=== PATIENT | male | born 1995 | race Caucasian/White ===

== ENCOUNTER 2022-09-02 18:07 | Emergency (ER) | payer BC, SELFPAY ==
[2022-09-02 18:27] VITALS: BP 155/83; PULSE 112; RESP 20; TEMP 37.1; O2SAT 100
--- NOTE | 2022-09-02 19:03 | ED.GENADULT ---
HPI - General Adult General Chief complaint: Upper Respiratory Infection Stated complaint: wants strep test; covid positive Source: patient and family Mode of arrival: ambulatory Limitations: no limitations History of Present Illness HPI narrative: Patient presents for evaluation of sick symptoms. He developed a sore throat yesterday. He took a home COVID test which was negative. He went to work at [employer] today. He had an episode of vomiting and has sore throat worsened. He was sent home from work. He repeated a COVID test which was positive. He denies any fever or diarrhea. He reports chills, and productive cough of yellow sputum. His father recently tested positive for COVID as well. No personal history of COVID. He has not taken any medications for his symptoms. He came in today to ensure that he did not have strep pharyngitis in addition to COVID. Related Data Home Medications Medication Instructions Recorded Confirmed atorvastatin 40 mg tablet mg 09/02/22 dapagliflozin 10 mg tablet mg 09/02/22 (Farxiga) divalproex 250 mg tablet,extended mg PO 09/02/22 release 24 hr insulin glargine 100 unit/mL (3 unit subcut 09/02/22 mL) subcutaneous pen (Lantus Solostar U-100 Insulin) insulin glargine-yfgn 100 unit/mL unit subcut 09/02/22 (3 mL) subcutaneous pen (Semglee (insulin glargine-yfgn) Pen) lisdexamfetamine 70 mg capsule mg 09/02/22 (Vyvanse) metformin 1,000 mg tablet mg 09/02/22 risperidone 0.5 mg tablet mg 09/02/22 risperidone 1 mg tablet mg 09/02/22 semaglutide 1 mg/dose (4 mg/3 mL) mg subcut 09/02/22 subcutaneous pen injector (Ozempic) sertraline 50 mg tablet mg 09/02/22 Allergies Allergy/AdvReac Type Severity Reaction Status Date / Time No Known Allergies Allergy Verified 09/02/22 18:23 Review of Systems Review of Systems: CONSTITUTIONAL:Reports chills. Denies fever or sweats. EYES: Denies visual changes, redness, or discharge. ENT:Reports sore throat. Denies otalgia CARDIOVASCULAR: Denies chest pain, palpitations, or edema. RESPIRATORY: Reports productive cough of yellow sputum. Denies shortness of breath. GASTROINTESTINAL: Reports nausea and vomiting. Denies diarrhea or abdominal pain. GENITOURINARY: Denies dysuria or hematuria. SKIN: Denies rash or itching. MUSCULOSKELETAL: Reports generalized body aches. NEUROLOGIC: Denies headache, numbness, dizziness, or weakness. PSYCHIATRIC: Denies anxiety or depression. PMFSH Past Medical History Medical History Autism Diabetes Hyperlipidemia Surgical History Surgical History No pertinent past surgical history Family History Family History Mother Family history non-contributory Social History Social History Tobacco type: cigars Additional smoking assessment comments: only smokes cigars on special occasions Alcohol intake: never Substance use: never Living arrangements: with family Gender identity (if verbalized by the patient): Male Spiritual care concerns: No Exam Narrative: GENERAL: Well-appearing, well-nourished, and in no acute distress. HEAD: Normocephalic, atraumatic. EYES: PERRLA and EOMI. ENT: Nares clear, no rhinorrhea or epistaxis. Mucous membranes moist. Oropharynx without tonsillar hypertrophy exudate or other lesions. Bilateral TMs pearly marcelo nonbulging NECK: Supple. No adenopathy or masses. No carotid bruits or JVD CHEST: Clear to auscultation. No respiratory distress. No wheezes rales or rhonchi HEART: Regular rate and rhythm. No murmur heard. Normal peripheral pulses. ABDOMEN: Soft, nontender, nondistended, normal active bowel sounds. EXTREMITIES: Normal range of motion. No edema. SKIN: Warm, dry, no rash. NEURO: No focal
== END 2022-09-02 19:32 | disposition home or self-care (01) ==
PROVIDERS: Emergency Provider Nurse Practitioner; PCP Family Medicine
DX: U07.1 COVID-19 (principal); F84.0 Autistic disorder; E11.9 Type 2 diabetes mellitus without complications; E78.5 Hyperlipidemia, unspecified; Z72.0 Tobacco use
CPT/HCPCS: 87081; 87880; 99203; G0463

== ENCOUNTER 2023-05-03 20:09 | Inpatient (IN) | payer BC, SELFPAY ==
[2023-05-03] VITALS (13 sets, daily range): BP systolic 133–167; BP diastolic 91–100; PULSE 110–143; RESP 14–18; TEMP 36.4–36.9; O2SAT 90–100
--- NOTE | ~2023-05-03 | XR_ITS ---
Lumbosacral Spine: AP and lateral views Clinical History: Pain Findings: The normal lordotic curve is maintained. The vertebral bodies and posterior elements are i ntact. The intervertebral disc spaces are preserved. The sacroiliac joints are normally outlined. Impression: No significant abnormality. Reviewed, dictated and finalized at [facility]. Impression: No significant abnormality.
--- NOTE | ~2023-05-03 | MR_ITS ---
EXAMINATION: MR MRCP wo/w con/w 3D wo ind DATE: 05/07/2023 16:02 INDICATION: Acute pancreatitis with elevated bilirubin. TECHNIQUE: Magnetic resonance imaging (MRI) of the abdomen was performed without and with 19 mL Multi Perla intravenous contrast. Sequences included coronal T2-weighted FS FSE, coronal T2-weighted FSE, a xial T1-weighted LAVA, coronal FS FIESTA, axial dual-echo T1-weighted SPGR, coronal lava-FLEX, sagitt al T2-weighted FSE, axial T2-weighted FSE, and axial DWI. Thick-slab T2-weighted FSE images were obta ined for magnetic resonance cholangiopancreatography (MRCP). Maximum intensity projection 3-D reconst ructions of the volumetric data were created by the technologist. Postcontrast sequences included cor onal LAVA-flex and time course of axial T1-weighted LAVA. COMPARISON: Chest CT 05/06/2023, CT abdomen and pelvis 05/03/2023 FINDINGS: ABDOMEN MRI: There are small pleural effusions. There is mild atelectasis in the lungs. There is diff use hepatic steatosis. There is sludge in the gallbladder, which is normal in size. The spleen, adren al glands, and kidneys are normal. There is edema of the head of the pancreas. The pancreas enhances throughout. There is fat stranding around the head of the pancreas extending inferiorly in the retrop eritoneum. There is a small volume of ascites. There are no dilated loops of bowel. ABDOMEN MRCP: The common duct is normal and measures 4 mm. No choledocholithiasis. IMPRESSION: 1. Acute interstitial pancreatitis. 2. Small volume of ascites. 3. Small pleural effusions. 4. Normal common duct. No choledocholithiasis. Reviewed, dictated and finalized at location A.
--- NOTE | ~2023-05-03 | US_ITS ---
EXAMINATION: US abdomen limited DATE: 05/03/2023 21:58 INDICATION: Upper abdominal pain TECHNIQUE: Multiple grayscale and Doppler ultrasound images of the abdomen were obtained. COMPARISON: CT from today FINDINGS: Bowel gas obscures visualization of the pancreas. The visualized portions of the pancreas a re unremarkable. The liver demonstrates increased echogenicity, heterogenous echotexture, and decreas ed through transmission. No surface nodularity. Normal hepatopetal flow in the main portal vein. The gallbladder is normal with no abnormal wall thickening, pericholecystic fluid or stones. The normal c ommon bile duct measures 6 mm. Sonographic Elias sign is positive. IMPRESSION: 1. Diffuse hepatic steatosis. 2. Positive sonographic Elias sign without additional abnormality detected. Given the CT appearance, finding is consistent with acute pancreatitis. Reviewed, dictated and finalized at location F. IMPRESSION: 1. Diffuse hepatic steatosis. 2. Positive sonographic Elias sign without additional abnormality detected. Gi mauricio the CT appearance, finding is consistent with acute pancreatitis.
--- NOTE | ~2023-05-03 | CT_ITS ---
EXAMINATION: CT abdomen pelvis w con INDICATION: Epigastric abdominal pain TECHNIQUE: Computed tomographic images of the abdomen and pelvis were obtained after the administrati on of 100 cc of Omnipaque 350 intravenous contrast. The dose-length product (DLP) was 1298.14 mGy-cm. Automated exposure control and iterative reconstruction technique were employed. COMPARISON: None available FINDINGS: Minimal dependent atelectasis is present in the lung bases. The heart size is normal. The l iver is diffusely low in attenuation when compared with the spleen, consistent with hepatic steatosis . The spleen, gallbladder, and adrenal glands are normal. There is mild enlargement of the pancreatic head with a small amount of inflammatory fluid surrounding the head of the pancreas as well as betwe en the second and third portions of duodenum and the pancreatic head. The kidneys are unremarkable. N o pathologically enlarged abdominal or pelvic lymph nodes are identified. No free intraperitoneal gas or evidence of bowel obstruction. There is mild lumbar spondylosis. IMPRESSION: 1. Acute pancreatitis, probable interstitial edematous pancreatitis with acute peripancreatic fluid c ollection. 2. Diffuse hepatic steatosis. Reviewed, dictated and finalized at location F. IMPRESSION: 1. Acute pancreatitis, probable interstitial edematous pancreatitis with acute peripancreatic fluid collection. 2. Diffuse hepatic steatosis.
--- NOTE | ~2023-05-03 | XR_ITS ---
EXAMINATION: XR chest 1V DATE: 05/06/2023 16:59 INDICATION: productive cough TECHNIQUE: frontal view of the chest was obtained. COMPARISON: None FINDINGS: Opacities at the bilateral lower lung zones. No pulmonary edema, pleural effusion or pneumothorax. He art size is normal. Excreted contrast seen in the right renal collecting system made to the immediate ly prior contrast enhanced CT. Visualized bones and soft tissues are unremarkable. IMPRESSION: 1. Opacities in the bilateral lower lung zones consistent with atelectasis and/or pneumonia. Reviewed, dictated and finalized at location B. IMPRESSION: 1. Opacities in the bilateral lower lung zones consistent with atelectasis and/ or pneumonia.
--- NOTE | ~2023-05-03 | XR_ITS ---
Clinical Indication: Status post fall PA view of the chest: Comparison: 05/06/2023 Findings: The lungs are clear, without evidence of focal consolidation or pleural effusion. Cardiome diastinal silhouette is within normal limits. Bones and soft tissues are unremarkable. Impression: Normal chest. Reviewed, dictated and finalized at location . Impression: Normal chest.
--- NOTE | ~2023-05-03 | CT_ITS ---
EXAMINATION: CTA abdomen DATE: 05/06/2023 16:59 INDICATION: Abdominal pain. Fever and tachycardia. TECHNIQUE: Computed tomographic angiography (CTA) of the abdomen was performed with 100 mL Omnipaque- 350 intravenous contrast. Automated exposure control and iterative reconstruction technique were empl oyed. The dose-length product was 1158.31 mGy-cm. Maximum intensity projection 3D-reconstructions of the aorta and other arteries were constructed by the technologist on a separate workstation. COMPARISON: CT abdomen and pelvis 05/03/2023 FINDINGS: The visualized portions of the lung bases demonstrate moderate atelectasis. No pleural effu risa. The heart size is normal. No pericardial effusion. There is diffuse hepatic steatosis. There is contrast in the gallbladder, which is normal in size. The spleen, adrenal glands, and kidneys are no rmal. There is fat stranding and fluid adjacent to the head of the pancreas and extending inferiorly in the retroperitoneum, right worse than left, consistent with pancreatitis. There is no significant stenosis of celiac axis, superior mesenteric artery, inferior mesenteric artery, or the renal arterie s. Abdominal aorta is normal. There is moderate lumbar spondylosis. IMPRESSION: 1. No significant arterial occlusive disease. 2. Worsened findings of acute interstitial pancreatitis. 3. Diffuse hepatic steatosis. Reviewed, dictated and finalized at location A.
--- NOTE | ~2023-05-03 | CT_ITS ---
EXAMINATION: CTA chest PE protocol DATE: 05/06/2023 22:53 INDICATION: tachycardia, requiring oxygen, pneumonia TECHNIQUE: Computed tomography angiography (CTA) of the chest was performed with 100 mL Omnipaque-350 intravenous contrast timed to evaluate the pulmonary arteries. Coronal maximum intensity projection 3D-reconstructions were created by the technologist. The dose-length product (DLP) was 805.18 mGy-cm. Automated exposure control and iterative reconstruction technique were employed. COMPARISON: X-ray chest and CTPA abdomen, same date. FINDINGS: Lung parenchyma and airways: Linear bibasilar and dependent lower lobe opacities which enhance fairly homogenously, noting the arterial phase of this examination. Patent airways. Pleura: Unremarkable. Thoracic inlet, axillae and chest wall: Unremarkable. Thoracic aorta: Normal. Mediastinum: Normal. Heart and pericardium: Normal. Coronary artery calcifications: Absent. Upper abdomen: CT of the abdomen performed same date.. Bones: No acute osseous finding. Pulmonary arteries: Study quality: Adequate. No pulmonary emboli detected. IMPRESSION: No CT evidence of acute pulmonary embolus. Bilateral lower lung opacities likely represent atelectasis based on morphology and relatively unifor m enhancement, noting that infection is not excluded. Reviewed, dictated and finalized at location K. IMPRESSION: No CT evidence of acute pulmonary embolus. Bilateral lower lung opacities likely represent atelectasis based on morphology and relatively uniform enhancement, noting that infection is not excluded.
--- NOTE | 2023-05-03 20:15 | ED.ABDPAIN ---
HPI - Abdominal Pain General Chief Complaint: Abdominal Pain <Stacey Noble MD - Last Filed: 05/05/23 13:07> Stated Complaint: abd pain <Stacey Noble MD - Last Filed: 05/05/23 13:07> Time Seen by Provider: 05/03/23 20:15 <Stacey Noble MD - Last Filed: 05/05/23 13:07> History of Present Illness HPI narrative: Patient is a 28-year-old male with history of hyperlipidemia, autism here with upper abdominal pain. He notes that the pain began about 1 day ago and has progressively worsened. Pain is diffuse throughout the abdomen but worse in the epigastrium and right upper quadrant. He does note that when he ate some carrots earlier today it seemed to make the pain worse. Denies prior history of similar in the past. He notes he has had some associated nausea and some loose stools. Denies fever and chills. Denies flank pain, denies urinary symptoms. He did have a prior appendectomy in the past. No cough, congestion,chest pain. <Stacey Noble MD - Last Filed: 05/05/23 13:07> MD elicited complaint: abdominal pain <Stacey Noble MD - Last Filed: 05/05/23 13:07> Onset (ago): day(s) <Stacey Noble MD - Last Filed: 05/05/23 13:07> Pain Consistency: constant <Stacey Noble MD - Last Filed: 05/05/23 13:07> Location: diffuse <MD Clifton Ohara Last Filed: 05/05/23 13:07> Severity: severe <MD Clifton Ohara Last Filed: 05/05/23 13:07> Quality: cramping, stabbing and aching <Stacey Noble MD - Last Filed: 05/05/23 13:07> Exacerbating factors: eating <Stacey Noble MD - Last Filed: 05/05/23 13:07> Relieving factors: nothing <MD Clifton Ohara Last Filed: 05/05/23 13:07> Related Data Home Medications: Home Medications Medication Instructions Recorded Confirmed atorvastatin 40 mg tablet 40 mg PO DAILY 09/02/22 05/04/23 dapagliflozin propanediol 10 mg 10 mg PO DAILY 09/02/22 05/04/23 tablet (Farxiga) insulin glargine-yfgn 100 unit/mL 26 unit subcut DAILY 09/02/22 05/04/23 (3 mL) subcutaneous pen (Semglee (insulin glargine-yfgn) Pen) metformin 1,000 mg tablet 1,000 mg PO USEASDIRECTD 09/02/22 05/04/23 semaglutide 1 mg/dose (4 mg/3 mL) 1 mg subcut WEEKLY 09/02/22 05/04/23 subcutaneous pen injector (Ozempic) <Stacey Noble MD - Last Filed: 05/05/23 13:07> Allergies/Adverse Reactions: Allergies Allergy/AdvReac Type Severity Reaction Status Date / Time No Known Allergies Allergy Verified 09/02/22 18:23 <Stacey Noble MD - Last Filed: 05/05/23 13:07> Review of Systems Review of Systems: All systems reviewed & are unremarkable except as noted in HPI and below <Stacey Noble MD - Last Filed: 05/05/23 13:07> [facility] Past Medical History Medical History: Medical History Autism Diabetes Hyperlipidemia <Stacey Noble MD - Last Filed: 05/05/23 13:07> Surgical History Surgical History: Surgical History No pertinent past surgical history <Stacey Noble MD - Last Filed: 05/05/23 13:07> Family History Family History: Family History Mother Family history non-contributory <Stacey Noble MD - Last Filed: 05/05/23 13:07> Social History Social History: Social History Smoking status: Never smoker Tobacco type: cigars Additional smoking assessment comments: only smokes cigars on special occasions Alcohol intake: never Substance use: never Lack of Transportation: No Lack of Food: Never True Current Housing: I Have Housing Concerned About Future Housing: No Difficulty Paying Gas/Electric Bills: No Difficulty Paying for Meds: No Currently Unemployed: No Education: Decline to Answer Difficulty w/ Childcare or Family Care: No Living arrangements: with family Gender identity (if ve
[2023-05-03] MEDS: SODIUM CHLORIDE 0.9% IV 1,000 ML 999 ML IV CONT (20:33)
[2023-05-03] MEDS: ONDANSETRON INJ 4 MG/2 ML VIAL IV PUSH (20:34)
[2023-05-03] MEDS: MORPHINE SULFATE (*CRX) 4 MG/ML INJ IV PUSH ×2 (20:35→21:12)
[2023-05-03] MEDS: BELLADONNA ALK/PHENOB ELIX 10 ML, MAG HYDROX/ALUMINUM HYD/SIMETH 30 ML, LIDOCAINE HCL 2... PO (20:38)
[2023-05-03] MEDS: PANTOPRAZOLE SODIUM IV 40 MG VIAL IV PUSH (20:38)
[2023-05-03 20:58] LABS: Alanine Aminotransferase 95 U/L (6-50); Albumin Level 4.5 g/dL (3.5-5.1); Alkaline Phosphatase 100 U/L (38-126); Anion Gap 20 mmol/L (8-16); Aspartate Amino Transferase 49 U/L (17-59); Bilirubin,Total 0.9 mg/dL (0.2-1.3); Blood Urea Nitrogen 10 mg/dL (9-20); Calcium 8.9 mg/dL (8.4-10.2); Carbon Dioxide 18 mmol/L (22-30); Chloride 97 mmol/L (98-107); Estimated CRCL calculation 164 ml/min; Estimated Glomerular Filt Rate > 60; Glucose 222 mg/dL (65-110); Lipase 404 U/L (23-300); Potassium 3.8 mmol/L (3.4-5.0); Sodium 135 mmol/L (137-145)
[2023-05-03 21:07] LABS: Basophils Absolute Auto 0.1 K/mm3 (0.0-0.1); Basophils Percent Auto 0.7 % (0.2-1.2); Eosinophils Absolute Auto 0.1 K/mm3 (0-0.3); Hemoglobin 14.4 g/dL (14.0-18.0); Immature Granulocyte Absolute 0.06 K/mm3 (0.00-0.031); Immature Granulocyte Percent A 0.5 % (0-0.5); Mean Corpuscular Hemoglobin 29.9 pg (26-34); Mean Corpuscular Volume 83.2 fl (80-100); Mean Platelet Volume 11.3 fl (7.4-10.4); Monocytes Absolute Auto 1.1 K/mm3 (0.1-0.6); Monocytes Percent Auto 8.1 % (2.6-8.5); Neutrophils Absolute Auto 10.3 K/mm3 (1.3-6.7); Neutrophils Percent Auto 77.7 % (45.5-73.1); Nucleated Red Blood Cells Perc 0.2 % (0.0-0.2); Platelet Count Result 236 k/mm3 (150-375); Red Blood Count 4.81 M/mm3 (4.6-6.20); Red Cell Distribution Width 13.2 % (11.5-14.5); White Blood Count 13.3 K/mm3 (4.5-10.0)
[2023-05-03] MEDS: LACTATED RINGERS 1,000 ML 999 ML IV CONT (21:45)
[2023-05-03 22:34] LABS: Appearance Urine Clear (Clear); Bilirubin Urine Negative (Negative); Blood Urine Negative (Negative); Color Urine Yellow (Yellow); Glucose Urine UA Trace mg/dL (Negative); Ketones Urine Negative (Negative); Leukocyte Esterase Ur Negative LEU/UL (Negative); Nitrate Urine Negative (Negative); Protein Urine Negative (Negative); Specific Grav Ur 1.016 (1.001-1.035); Urobilinogen Urine 0.2 mg/dL (<2.0)
--- NOTE | 2023-05-03 22:58 | PM.IMHP ---
H&P: HPI History of Present Illness Date/Time: 05/03/23 22:58 Chief Complaint: epigastric abdominal pain Narrative: ? Patient is a 28-year-old male with history of hyperlipidemia and type 2 diabetes on Ozempic and faxiga, autism here with upper abdominal pain.? He notes that the pain began about 1 day ago and has progressively worsened.? ? Pain is diffuse throughout the abdomen but worse in the epigastrium and right upper quadrant.? ? He does note that when he ate some carrots earlier today it seemed to make the pain worse.? Denies prior history of similar in the past.? He notes he has had some associated nausea and some loose stools.? ? Denies fever and chills.? Denies flank pain, denies urinary symptoms.? He did have a prior appendectomy in the past. No cough, congestion,chest pain.Denied N/V or fever Review of Systems Review of Systems: All systems reviewed & are unremarkable except as noted in HPI and below PMFSH Past Medical History Medical History Autism Diabetes Hyperlipidemia Surgical History Surgical History No pertinent past surgical history Family History Family History Mother Family history non-contributory Social History Social History Tobacco type: cigars Additional smoking assessment comments: only smokes cigars on special occasions Alcohol intake: never Substance use: never Living arrangements: with family Gender identity (if verbalized by the patient): Male Spiritual care concerns: No Meds Home Medications and Allergies Home Medications Medication Instructions Recorded Confirmed Type atorvastatin 40 mg tablet 40 mg PO DAILY 09/02/22 09/02/22 History dapagliflozin propanediol 10 mg 10 mg PO DAILY 09/02/22 09/02/22 History tablet (Farxiga) insulin glargine-yfgn 100 unit/mL 26 unit subcut DAILY 09/02/22 09/02/22 History (3 mL) subcutaneous pen (Semglee (insulin glargine-yfgn) Pen) metformin 1,000 mg tablet 1,000 mg PO USEASDIRECTD 09/02/22 09/02/22 History semaglutide 1 mg/dose (4 mg/3 mL) 1 mg subcut WEEKLY 09/02/22 09/02/22 History subcutaneous pen injector (Ozempic) lisdexamfetamine 70 mg capsule 70 mg PO DAILY #30 caps 03/12/23 Rx (Vyvanse) divalproex 250 mg tablet,extended 250 mg PO .COMPLEX #270 tabs 03/14/23 Rx release 24 hr risperidone 0.5 mg tablet 0.5 mg PO HS #30 tabs 04/08/23 Rx risperidone 1 mg tablet 1 mg PO BID #60 tabs 04/08/23 Rx sertraline 50 mg tablet 50 mg PO DAILY #30 tabs 04/08/23 Rx Allergies Allergy/AdvReac Type Severity Reaction Status Date / Time No Known Allergies Allergy Verified 09/02/22 18:23 Vital Signs Vital Signs - 24 hr 05/03/23 20:11 05/03/23 20:18 Temperature 97.6 F 98.1 F Pulse Rate 143 H 137 H Respiratory Rate 14 16 Blood Pressure 133/91 H 150/100 H Pulse Oximetry 100 98 Oxygen Delivery Room Air Exam Const: General: in distress Other: Patient is in [id number] pain distress HENMT: Face/Nose/Sinus: Normal nares present Mouth: Yes moist mucous membranes Eyes: General: appearance normal, both eyes and all related structures EOM: EOMs intact bilaterally Neck: Neck: supple Resp: Effort & Inspection: normal respiratory effort Auscultation: clear to auscultation bilaterally Cardio: Rate: tachycardic Rhythm: regular rhythm Other: Heart sound 1 and 2 were normal, no murmur or gallop. No pedal edema GI: Other: not distended, moderate tenderness on epigastric area++, Bowel sounds are hypoactive Skin: General skin exam: normal color Neuro: Other: Alert and oriented x4, no focal neurological deficit Extrem: General: normal to inspection Other: ROM normal in all extremities Psych: Mental Status: mental sta
[2023-05-03 23:20] LABS: Add Urine Microscopic? NO
[2023-05-03] MEDS: LACTATED RINGERS 1,000 ML 125 ML IV CONT (23:39)
[2023-05-03] MEDS: MORPHINE SULFATE (*CRX) 2 MG/ML INJ IV PUSH (23:45)
--- NOTE | 2023-05-03 23:51 | ADMGEN ---
This patient, Nathaniel Cronin, was admitted to Medical Room 249-01. Patient/family oriented to hospital policies and general routines including ID bracelet, bed and alarms, visiting hours, pain management, procedures, bathroom and other care routines, personal items, smoking policy, room service/diet, and visiting hours. Information on how to activate the Rapid Response Team has been discussed. Patient/Family are encouraged to report perceived risks to care and to ask questions if they do not understand what they are told or what they should do.
[2023-05-04] MEDS: HYDROmorphone HCL INJ (*CRX) 1 MG/ML SYR IV PUSH ×5 (00:11→20:04)
[2023-05-04 04:34] VITALS: BP 110/88; PULSE 112; RESP 20; TEMP 36.6; O2SAT 92
[2023-05-04 04:37] VITALS: BMI 31.2
[2023-05-04 06:32] LABS: Basophils Absolute Auto 0.1 K/mm3 (0.0-0.1); Basophils Percent Auto 0.6 % (0.2-1.2); Eosinophils Percent Auto 0.2 % (0-4.4); Hematocrit 39.5 % (42.0-52.0); Hemoglobin 14.8 g/dL (14.0-18.0); Immature Granulocyte Absolute 0.06 K/mm3 (0.00-0.031); Immature Granulocyte Percent A 0.4 % (0-0.5); Lymphocytes Absolute Auto 1.56 K/mm3 (0.9-3.2); Lymphocytes Percent Auto 9.6 % (18.3-44.2); Mean Corpuscular HGB Conc 37.5 g/dl (32-36); Mean Corpuscular Hemoglobin 31.4 pg (26-34); Mean Corpuscular Volume 83.7 fl (80-100); Mean Platelet Volume 11.5 fl (7.4-10.4); Monocytes Absolute Auto 1.5 K/mm3 (0.1-0.6); Neutrophils Percent Auto 80.2 % (45.5-73.1); Platelet Count Result 264 k/mm3 (150-375); Red Blood Count 4.72 M/mm3 (4.6-6.20); Red Cell Distribution Width 13.8 % (11.5-14.5); White Blood Count 16.2 K/mm3 (4.5-10.0)
[2023-05-04] MEDS: KETOROLAC 30 MG/ML VIAL (*BKC) IV PUSH (06:33)
[2023-05-04 06:54] LABS: LDL Cholesterol Direct 33 mg/dL
[2023-05-04 07:02] LABS: Anion Gap 13 mmol/L (8-16); Blood Urea Nitrogen 8 mg/dL (9-20); Calcium 8.2 mg/dL (8.4-10.2); Carbon Dioxide 19 mmol/L (22-30); Chloride 99 mmol/L (98-107); Cholesterol 256 mg/dL (0-200); Estimated CRCL calculation 213 ml/min; Estimated Glomerular Filt Rate > 60; Glucose 262 mg/dL (65-110); Potassium 4.1 mmol/L (3.4-5.0); Sodium 131 mmol/L (137-145)
[2023-05-04 07:42] LABS: Triglycerides 2521 mg/dL (<150)
[2023-05-04] MEDS: LACTATED RINGERS 1,000 ML 125 ML IV CONT (08:30)
[2023-05-04] MEDS: risperiDONE 1 MG TABLET PO ×2 (08:30→17:08)
[2023-05-04] MEDS: SERTRALINE HCL 50 MG TABLET PO (08:30)
[2023-05-04] MEDS: PANTOPRAZOLE SODIUM IV 40 MG VIAL IV PUSH (08:30)
[2023-05-04] MEDS: metFORMIN HCL 500 MG TABLET 1000 MG PO ×2 (08:39→17:08)
[2023-05-04] MEDS: INSULIN ASPART (*BKC) 100 UNITS/ML SUB-Q ×4 (08:45→20:12)
[2023-05-04 08:47] LABS: Glucose Point of Care 307 mg/dl (65-105)
--- NOTE | 2023-05-04 11:57 | PM.IMPN ---
Progress Note: A&P Assessment and Plan (1) Acute pancreatitis: Qualifiers: Pancreatitis type: drug induced Code(s): K85.90 - Acute pancreatitis without necrosis or infection, unspecified Status: Acute Assessment and Plan: Pancreatitis most likely due to triglycerides being elevated over 2500. Lipase elevated to 404. CT abdomen pelvis revealing acute pancreatitis. Start on Fenofibrate. IV fluids initiated. NPO diet. Nephrology consulted for possible plasmapheresis due to elevated triglycerides. (2) Elevated lipase: Code(s): R74.8 - Abnormal levels of other serum enzymes Status: Acute Assessment and Plan: Secondary to acute pancreatitis. Continue pain control and IV hydration (3) Diabetes: Code(s): E11.9 - Type 2 diabetes mellitus without complications Status: Acute Assessment and Plan: Patient is hyperglycemic, not in DKA. Would continue IV hydration, hold ozempic, continue lantuus and place on SSI (4) Hypertriglyceridemia: Code(s): E78.1 - Pure hyperglyceridemia Status: Acute Subjective Date/time seen: 05/04/23 11:57 Interval history: Patient lying in bed with mother at bedside. Patient is adopted and family history is unknown. explained to patient's mom that elevated triglycerides can sometimes be genetic. Patient will likely need plasmapheresis or insulin drip to decrease the amount of triglycerides. He continues to have abdominal pain near his umbilicus. He has pain to palpation in the right upper quadrant. He denies any nausea vomiting. He did have breakfast this morning and states that it did not worsen his pain. Discussed with the family that it would probably be best if he is NPO for now. Review of Systems Review of Systems: All systems reviewed & are unremarkable except as noted in HPI and below Exam Narrative: GENERAL: Comfortable, no acute distress HENMT: moist mucous membranes EYES: EOM intact b/l RESPIRATORY: clear to auscultation CARDIO: RRR GI: soft, Right upper quadrant tenderness to palpation, bowel sounds present SKIN: no rashes EXTREMITIES: no edema, redness or tenderness Objective Data Vital Signs Vital Signs: Vital Signs - 24 hr 05/03/23 20:11 05/03/23 20:18 05/03/23 21:17 Temperature 97.6 F 98.1 F Pulse Rate 143 H 137 H Respiratory Rate 14 16 Blood Pressure 133/91 H 150/100 H Pulse Oximetry 100 98 90 Oxygen Delivery Room Air 05/03/23 21:30 05/03/23 21:31 05/03/23 21:45 Temperature Pulse Rate Respiratory Rate Blood Pressure 167/97 H 158/98 H Pulse Oximetry 97 94 93 Oxygen Delivery 05/03/23 21:46 05/03/23 22:20 05/03/23 22:30 Temperature Pulse Rate Respiratory Rate Blood Pressure Pulse Oximetry 93 98 97 Oxygen Delivery 05/03/23 22:45 05/03/23 23:00 05/03/23 23:17 Temperature Pulse Rate 110 H Respiratory Rate 16 Blood Pressure 160/92 H Pulse Oximetry 97 95 96 Oxygen Delivery 05/03/23 23:40 05/04/23 04:34 05/04/23 09:00 Temperature 98.4 F 97.8 F Pulse Rate 116 H 112 H Respiratory Rate 18 20 Blood Pressure 162/96 H 110/88 Pulse Oximetry 99 92 Oxygen Delivery Room Air Intake/Output Intake/Output: Intake & Output 05/01/23 05/02/23 05/03/23 05/04/23 23:59 23:59 23:59 23:59 Intake Total 1999 1530 Balance 1999 1530 Meds/Results Medications: Active Medications Generic Name Dose Route Start Last Admin Trade Name Freq PRN Reason Stop Dose Admin Dextrose 12.5 gm 05/04/23 03:47 Dextrose 50% 25 Gm/50 Ml Syringe IV PUSH PRN PRN Hypoglycemia Protocol Glucagon 1 mg 05/04/23 03:47 Glucagon For Inj 1 Mg Vial IM PRN PRN Hypoglycemia Protocol Glucose 15 gm 05/04/23 03:47 Glucose Oral Gel 15 Gm Of Glucse In 37.5 Gm Tube PO PRN PRN Hypoglycemia Protocol Hydromorphone HCl 1 mg 05/04/23 00:04 0
[2023-05-04 11:59] LABS: Glucose Point of Care 295 mg/dl (65-105)
--- NOTE | 2023-05-04 12:06 | PM.CNNEP ---
Assessment and Plan Assessment and plan (1) Hypertriglyceridemia: Code(s): E78.1 - Pure hyperglyceridemia Status: Acute (2) Acute pancreatitis: Qualifiers: Pancreatitis type: drug induced Code(s): K85.90 - Acute pancreatitis without necrosis or infection, unspecified Status: Acute Plan Eran has pancreatitis. He is getting supportive care for this. He also has hypertriglyceridemia. Sometimes this is the cause of the pancreatitis, sometimes this is something that is exacerbated by the pancreatitis. He does have diabetes which is possibly the underlying cause for the hypertriglyceridemia as well. Treatment of the hypertriglyceridemia involves long-term approaches such as dietary management, avoiding carbs, avoiding bad fats, fish oil, treating of the diabetes and medicines to lower the triglyceride levels. Plasmapheresis is indeed an option for reducing the triglyceride levels, however there is risk to this related to catheter placements (pneumothorax, infection, blood vessel damage ), and also to the plasmapheresis itself (infection, bleeding). The plasmapheresis does not make the pancreatitis better and so will not make him feel better. Although plasmapheresis can reduce the triglyceride levels by about 60% or so 1 treatment, there has been no evidence that it improves overall outcome. Generally recommendations according to [employer] are to reserve plasmapheresis for those patients who have multiorgan failure, lactic acidosis, severe hypo calcemia. That is, someone much sicker than Nathaniel. I talked at length with Nathaniel and with his parents and we will follow him closely. I discussed with RHONA Michaels History of Present Illness Reason for Consult Consult date: 05/04/23 Chief Complaint Chief complaint: Acute Pancreatitis History of Present Illness Narrative: Vivian is a very pleasant 28-year-old gentleman who has pancreatitis and high triglyceride levels. This is the 1st time he has been to this hospital. Came to the ER with abdominal pain. It had been going on for about a day. It was gradually worse. He tried eating something the make it better but it did not work so he came to the ER. Yesterday he was in quite a bit of pain. He could hardly sit still. He was seen in the ER and diagnosed with pancreatitis. He was given IV fluids and pain meds and admitted to the floor. The pain med seem to have helped with his pain. Today the patient is much more comfortable but still in a lot of pain. The patient denies chest pain shortness of breath or cough. He has no nausea or vomiting. No diarrhea. No fevers chills or skin rash. The patient has never had a problem with pancreatitis before. Today RHONA Michaels saw the patient and ordered a triglyceride level which is 2500. Renal was consulted to consider plasmapheresis. Review of Systems Constitutional: Constitutional: Reports no additional constitutional complaints Eyes: Eyes: Reports no additional eye complaints ENT: Reports system reviewed and no additional complaints, except as documented Cardiovascular: Cardiovascular: Reports no additional cardiovascular complaints Respiratory: Respiratory: Reports no additional respiratory complaints Gastrointestinal: Gastrointestinal: Reports no additional gastrointestinal complaints Genitourinary: Genitourinary: Reports no additional male genitourinary complaints Musculoskeletal: Musculoskeletal: Reports no additional musculoskeletal complaints Integumentary/Breasts: Skin/Breast: Reports system reviewed and no additional complaints, except as docu Neurologic: Reports system reviewed and no additional complaints, except as documented Psychiatric: Psychiatric: Reports no additional psychiatric complaints Endocrine: Endocrine: Reports no additional endocrine complaints PMFSH Past Medical History Medical History Autism Diabetes Hyp
[2023-05-04] MEDS: ONDANSETRON INJ 4 MG/2 ML VIAL IV PUSH (12:07)
[2023-05-04 12:21] LABS: Lactic Acid Reflex 1.9 mmol/L (0.7-2.0)
[2023-05-04 12:58] VITALS: BP 160/90; PULSE 123; RESP 16; TEMP 36.9; O2SAT 96
[2023-05-04] MEDS: LACTATED RINGERS 1,000 ML 100 ML IV CONT (17:07)
[2023-05-04 17:09] LABS: Glucose Point of Care 281 mg/dl (65-105)
[2023-05-04 19:33] VITALS: BP 164/91; PULSE 125; RESP 19; TEMP 36.6; O2SAT 93
[2023-05-04] MEDS: risperiDONE 0.5 MG TABLET PO (20:07)
[2023-05-04 20:11] LABS: Glucose Point of Care 274 mg/dl (65-105)
[2023-05-04] MEDS: INSULIN GLARGINE (*BKC) 100 UNITS/ML 26 UNITS SUB-Q (20:11)
[2023-05-04] MEDS: KETOROLAC 15 MG/ML VIAL (*BKC) IV PUSH (21:16)
[2023-05-05] MEDS: HYDROmorphone HCL INJ (*CRX) 1 MG/ML SYR IV PUSH ×6 (00:16→21:01)
[2023-05-05] MEDS: LACTATED RINGERS 1,000 ML 100 ML IV CONT (03:48)
[2023-05-05 04:37] VITALS: BP 124/81; PULSE 136; RESP 18; TEMP 37.2; O2SAT 92
[2023-05-05 05:52] LABS: Basophils Absolute Auto 0.1 K/mm3 (0.0-0.1); Basophils Percent Auto 0.5 % (0.2-1.2); Eosinophils Percent Auto 0.4 % (0-4.4); Hemoglobin 13.7 g/dL (14.0-18.0); Immature Granulocyte Absolute 0.05 K/mm3 (0.00-0.031); Immature Granulocyte Percent A 0.4 % (0-0.5); Lymphocytes Absolute Auto 1.59 K/mm3 (0.9-3.2); Lymphocytes Percent Auto 14.2 % (18.3-44.2); Mean Corpuscular HGB Conc 34.3 g/dl (32-36); Mean Corpuscular Hemoglobin 29.3 pg (26-34); Mean Corpuscular Volume 85.7 fl (80-100); Mean Platelet Volume 11.4 fl (7.4-10.4); Monocytes Absolute Auto 1.2 K/mm3 (0.1-0.6); Neutrophils Absolute Auto 8.2 K/mm3 (1.3-6.7); Neutrophils Percent Auto 73.5 % (45.5-73.1); Platelet Count Result 211 k/mm3 (150-375); Red Blood Count 4.67 M/mm3 (4.6-6.20); Red Cell Distribution Width 13.5 % (11.5-14.5); White Blood Count 11.2 K/mm3 (4.5-10.0)
[2023-05-05 06:06] LABS: Alanine Aminotransferase 43 U/L (6-50); Albumin Level 3.9 g/dL (3.5-5.1); Alkaline Phosphatase 57 U/L (38-126); Anion Gap 10 mmol/L (8-16); Aspartate Amino Transferase 25 U/L (17-59); Blood Urea Nitrogen 13 mg/dL (9-20); Calcium 8.6 mg/dL (8.4-10.2); Carbon Dioxide 22 mmol/L (22-30); Chloride 98 mmol/L (98-107); Estimated CRCL calculation 158 ml/min; Estimated Glomerular Filt Rate > 60; Glucose 227 mg/dL (65-110); Potassium 3.6 mmol/L (3.4-5.0); Sodium 130 mmol/L (137-145)
[2023-05-05 06:52] LABS: Triglycerides 1136 mg/dL (<150)
[2023-05-05] MEDS: FENOFIBRATE 160 MG TABLET PO (08:20)
[2023-05-05] MEDS: PANTOPRAZOLE SODIUM IV 40 MG VIAL IV PUSH (08:20)
[2023-05-05] MEDS: risperiDONE 1 MG TABLET PO ×2 (08:20→16:03)
[2023-05-05] MEDS: SERTRALINE HCL 50 MG TABLET PO (08:20)
[2023-05-05] MEDS: metFORMIN HCL 500 MG TABLET 1000 MG PO ×2 (08:23→16:03)
[2023-05-05] MEDS: INSULIN ASPART (*BKC) 100 UNITS/ML SUB-Q ×3 (08:27→17:07)
[2023-05-05 09:07] LABS: Glucose Point of Care 230 mg/dl (65-105)
--- NOTE | 2023-05-05 11:42 | PM.IMPN ---
Progress Note: A&P Assessment and Plan (1) Acute pancreatitis: Qualifiers: Pancreatitis type: drug induced Code(s): K85.90 - Acute pancreatitis without necrosis or infection, unspecified Status: Acute Assessment and Plan: Pancreatitis most likely due to triglycerides being elevated over 2500. Lipase elevated to 404. CT abdomen pelvis revealing acute pancreatitis. Start on Fenofibrate. IV fluids initiated. Advance diet as tolerated. Nephrology consulted for possible plasmapheresis due to elevated triglycerides. 05/05/23 Repeat triglycerides today approximately 1100. (2) Elevated lipase: Code(s): R74.8 - Abnormal levels of other serum enzymes Status: Acute Assessment and Plan: Secondary to acute pancreatitis. Continue pain control and IV hydration (3) Diabetes: Code(s): E11.9 - Type 2 diabetes mellitus without complications Status: Acute Assessment and Plan: Patient is hyperglycemic, not in DKA. Would continue IV hydration, hold ozempic, continue lantuus and place on SSI (4) Hypertriglyceridemia: Code(s): E78.1 - Pure hyperglyceridemia Status: Acute Assessment and Plan: On presentation patient's triglycerides were greater than 2500. He was placed on fenofibrate. Repeat triglycerides and next morning were approximately 1100. Subjective Date/time seen: 05/05/23 11:42 Interval history: Patient continues to have abdominal pain although it is better than yesterday. He feels up to trying a diet neck discussed with him that we can start with a clear liquid diet but if he does not do well we will discontinue this diet. He denies any nausea. He states that he has have a bowel movement 2 days and I started him on some MiraLax. Exam Narrative: GENERAL: Comfortable, no acute distress HENMT: moist mucous membranes EYES: EOM intact b/l RESPIRATORY: clear to auscultation CARDIO: RRR GI: soft, Right upper quadrant tenderness to palpation, bowel sounds present SKIN: no rashes EXTREMITIES: no edema, redness or tenderness Objective Data Vital Signs Vital Signs: Vital Signs - 24 hr 05/04/23 12:58 05/04/23 19:33 05/04/23 20:00 Temperature 98.5 F 97.9 F Pulse Rate 123 H 125 H Respiratory Rate 16 19 Blood Pressure 160/90 H 164/91 H Pulse Oximetry 96 93 Oxygen Delivery Room Air 05/05/23 04:37 05/05/23 08:25 Temperature 99 F Pulse Rate 136 H Respiratory Rate 18 Blood Pressure 124/81 Pulse Oximetry 92 Oxygen Delivery Room Air Intake/Output Intake/Output: Intake & Output 05/02/23 05/03/23 05/04/23 05/05/23 23:59 23:59 23:59 23:59 Intake Total 1999 2530 1000 Balance 1999 2530 1000 Meds/Results Medications: Active Medications Generic Name Dose Route Start Last Admin Trade Name Freq PRN Reason Stop Dose Admin Dextrose 12.5 gm 05/04/23 03:47 Dextrose 50% 25 Gm/50 Ml Syringe IV PUSH PRN PRN Hypoglycemia Protocol Fenofibrate 160 mg 05/05/23 09:00 05/05/23 08:20 Fenofibrate 160 Mg Tablet PO 160 mg DAILY JENNIFER Administration Glucagon 1 mg 05/04/23 03:47 Glucagon For Inj 1 Mg Vial IM PRN PRN Hypoglycemia Protocol Glucose 15 gm 05/04/23 03:47 Glucose Oral Gel 15 Gm Of Glucse In 37.5 Gm Tube PO PRN PRN Hypoglycemia Protocol Hydromorphone HCl 1 mg 05/04/23 00:04 05/05/23 08:19 Hydromorphone Hcl Inj (*Crx) 1 Mg/Ml Syr IV PUSH 1 mg Q4H PRN Administration Pain Rated 7-10 Lactated Ringer's 1,000 mls @ 100 mls/hr 05/03/23 22:45 05/05/23 03:48 Lr - Lactated Ringers Iv IV CONT 100 mls/hr .Q10H JENNIFER Administration Dextrose 1,000 mls @ 100 mls/hr 05/04/23 03:47 Dextrose 5% 1,000 Ml IVPB PRN PRN Hypoglycemia Protocol Insulin Aspart 2 - 4 units 05/05/23 21:00 Insulin Aspart (*Bkc) 100 Units/Ml SUB-Q HS JENNIFER Protocol Insulin Aspart
[2023-05-05 12:06] LABS: Glucose Point of Care 234 mg/dl (65-105)
[2023-05-05] MEDS: LACTATED RINGERS 1,000 ML 75 ML IV CONT (12:13)
[2023-05-05] MEDS: polyethylene glycoL 3350 17 GM POWD.PACK PO (12:13)
--- NOTE | 2023-05-05 13:00 | PM.PNNEP ---
Progress Note: A&P Assessment and Plan (1) Hypertriglyceridemia: Code(s): E78.1 - Pure hyperglyceridemia Status: Acute (2) Acute pancreatitis: Qualifiers: Pancreatitis type: drug induced Code(s): K85.90 - Acute pancreatitis without necrosis or infection, unspecified Status: Acute Plan Eran has pancreatitis. He is getting supportive care for this. He also has hypertriglyceridemia. Yesterday his level was 2521; today his level is down to 1136. Lactic acid was normal. Calcium is back up. He is feeling better. I do not think we need plasmapheresis at this point. Long discussion with the patient and his mom. Nephrology will sign off. Subjective Date/time seen: 05/05/23 13:00 Interval history: Nathaniel is feeling a little better today. Yesterday his abdominal pain was an 8/10 today it is down to 6/10. No chest pain or shortness of breath Review of Systems Cardiovascular: Cardiovascular: Reports no additional cardiovascular complaints Respiratory: Respiratory: Reports no additional respiratory complaints Gastrointestinal: Gastrointestinal: Reports no additional gastrointestinal complaints Genitourinary: Genitourinary: Reports no additional male genitourinary complaints Exam Narrative: WDWN in NAD skin no rash head ncat lungs clear cor reg no rub abd BS+ mildly tender but no rebound ext no edema. Objective Data Vital Signs Vital Signs: Vital Signs - 24 hr 05/04/23 19:33 05/04/23 20:00 05/05/23 04:37 Temperature 97.9 F 99 F Pulse Rate 125 H 136 H Respiratory Rate 19 18 Blood Pressure 164/91 H 124/81 Pulse Oximetry 93 92 Oxygen Delivery Room Air 05/05/23 08:25 Temperature Pulse Rate Respiratory Rate Blood Pressure Pulse Oximetry Oxygen Delivery Room Air Intake/Output Intake/Output: Intake & Output 05/02/23 05/03/23 05/04/23 05/05/23 23:59 23:59 23:59 23:59 Intake Total 1999 2529 1999 Balance 1999 2529 1999 Meds/Results Medications: Active Medications Generic Name Dose Route Start Last Admin Trade Name Freq PRN Reason Stop Dose Admin Dextrose 12.5 gm 05/04/23 03:47 Dextrose 50% 25 Gm/50 Ml Syringe IV PUSH PRN PRN Hypoglycemia Protocol Fenofibrate 160 mg 05/05/23 09:00 05/05/23 08:20 Fenofibrate 160 Mg Tablet PO 160 mg DAILY JENNIFER Administration Glucagon 1 mg 05/04/23 03:47 Glucagon For Inj 1 Mg Vial IM PRN PRN Hypoglycemia Protocol Glucose 15 gm 05/04/23 03:47 Glucose Oral Gel 15 Gm Of Glucse In 37.5 Gm Tube PO PRN PRN Hypoglycemia Protocol Hydromorphone HCl 1 mg 05/04/23 00:04 05/05/23 12:16 Hydromorphone Hcl Inj (*Crx) 1 Mg/Ml Syr IV PUSH 1 mg Q4H PRN Administration Pain Rated 7-10 Lactated Ringer's 1,000 mls @ 75 mls/hr 05/03/23 22:45 05/05/23 12:13 Lr - Lactated Ringers Iv IV CONT 75 mls/hr .[id number] JENNIFER Administration Dextrose 1,000 mls @ 100 mls/hr 05/04/23 03:47 Dextrose 5% 1,000 Ml IVPB PRN PRN Hypoglycemia Protocol Insulin Aspart 2 - 4 units 05/05/23 21:00 Insulin Aspart (*Bkc) 100 Units/Ml SUB-Q HS JENNIFER Protocol Insulin Aspart 4 - 8 units 05/05/23 08:00 05/05/23 12:14 Insulin Aspart (*Bkc) 100 Units/Ml SUB-Q 4 units TIDWM JENNIFER Administration Protocol Insulin Glargine 40 units 05/05/23 21:00 Insulin Glargine (*Bkc) 100 Units/Ml SUB-Q HS JENNIFER Metformin HCl 1,000 mg 05/04/23 08:00 05/05/23 08:23 Metformin Hcl 500 Mg Tablet PO 1,000 mg BIDWM JENNIFER Administration Miscellaneous Information 0 each 05/04/23 00:01 05/05/23 00:20 Vyvanse 70mg Nonform Can Pt Bring From Home? XX 06/03/23 00:00 Not Given CLARIFY JENNIFER Non-Formulary Medication 70 mg 05/04/23 09:00 Lisdexamfetamine [Vyvanse] PO 06/03/23 08:59 DAILY JENNIFER Ondansetron HCl 4 mg 05/03/23 22:53 05/04/23 12:07 Ondansetron Inj 4 Mg/2 Ml Vial IV PUSH
[2023-05-05 14:10] VITALS: BP 157/82; PULSE 115; RESP 18; TEMP 37.1; O2SAT 95
[2023-05-05 17:05] LABS: Glucose Point of Care 218 mg/dl (65-105)
[2023-05-05 20:08] LABS: Glucose Point of Care 173 mg/dl (65-105)
[2023-05-05 20:53] VITALS: BP 136/80; PULSE 124; RESP 18; TEMP 36.6; O2SAT 92
[2023-05-05] MEDS: INSULIN GLARGINE (*BKC) 100 UNITS/ML 40 UNITS SUB-Q (21:01)
[2023-05-05] MEDS: risperiDONE 0.5 MG TABLET PO (21:01)
[2023-05-06] MEDS: HYDROmorphone HCL INJ (*CRX) 1 MG/ML SYR IV PUSH ×5 (01:20→17:30)
[2023-05-06] MEDS: LACTATED RINGERS 1,000 ML 75 ML IV CONT ×2 (04:40→17:23)
[2023-05-06 05:40] VITALS: BP 134/79; PULSE 128; RESP 18; TEMP 36.8; O2SAT 90
[2023-05-06 05:43] LABS: Basophils Absolute Auto 0.1 K/mm3 (0.0-0.1); Basophils Percent Auto 0.6 % (0.2-1.2); Eosinophils Percent Auto 0.3 % (0-4.4); Hematocrit 37.4 % (42.0-52.0); Hemoglobin 12.7 g/dL (14.0-18.0); Immature Granulocyte Absolute 0.04 K/mm3 (0.00-0.031); Immature Granulocyte Percent A 0.4 % (0-0.5); Lymphocytes Absolute Auto 1.65 K/mm3 (0.9-3.2); Lymphocytes Percent Auto 14.8 % (18.3-44.2); Mean Corpuscular Hemoglobin 29.1 pg (26-34); Mean Corpuscular Volume 85.8 fl (80-100); Mean Platelet Volume 10.7 fl (7.4-10.4); Monocytes Absolute Auto 1.4 K/mm3 (0.1-0.6); Monocytes Percent Auto 12.2 % (2.6-8.5); Neutrophils Percent Auto 71.7 % (45.5-73.1); Platelet Count Result 202 k/mm3 (150-375); Red Blood Count 4.36 M/mm3 (4.6-6.20); Red Cell Distribution Width 13.7 % (11.5-14.5); White Blood Count 11.1 K/mm3 (4.5-10.0)
[2023-05-06 05:53] LABS: Alanine Aminotransferase 34 U/L (6-50); Albumin Level 3.5 g/dL (3.5-5.1); Alkaline Phosphatase 66 U/L (38-126); Anion Gap 5 mmol/L (8-16); Aspartate Amino Transferase 25 U/L (17-59); Bilirubin,Total 1.1 mg/dL (0.2-1.3); Blood Urea Nitrogen 10 mg/dL (9-20); Calcium 8.5 mg/dL (8.4-10.2); Carbon Dioxide 29 mmol/L (22-30); Chloride 96 mmol/L (98-107); Estimated CRCL calculation 181 ml/min; Estimated Glomerular Filt Rate > 60; Glucose 196 mg/dL (65-110); Lipase 93 U/L (23-300); Potassium 3.2 mmol/L (3.4-5.0); Sodium 130 mmol/L (137-145); Triglycerides 523 mg/dL (<150)
[2023-05-06 07:55] LABS: Glucose Point of Care 172 mg/dl (65-105)
[2023-05-06] MEDS: POTASSIUM CHLORIDE INJ 40 MEQ in SODIUM CHLORIDE 0.9% IV 500 ML 130 MEQ IVPB (08:06)
[2023-05-06] MEDS: INSULIN GLARGINE (*BKC) 100 UNITS/ML 30 UNITS SUB-Q ×2 (08:07→17:24)
[2023-05-06] MEDS: SERTRALINE HCL 50 MG TABLET PO (08:07)
[2023-05-06] MEDS: polyethylene glycoL 3350 17 GM POWD.PACK PO (08:07)
[2023-05-06] MEDS: risperiDONE 1 MG TABLET PO ×2 (08:07→16:03)
[2023-05-06] MEDS: PANTOPRAZOLE SODIUM IV 40 MG VIAL IV PUSH (08:07)
[2023-05-06] MEDS: metFORMIN HCL 500 MG TABLET 1000 MG PO ×2 (08:07→16:03)
[2023-05-06] MEDS: FENOFIBRATE 160 MG TABLET PO (08:07)
--- NOTE | 2023-05-06 11:51 | ECG_ITS ---
Measurements Intervals [place] Rate: 114 P: 28 OK: 121 QRS: 17 QRSD: 87 T: 65 QT: 316 QTc: 436 Interpretive Statements SINUS TACHYCARDIA OTHERWISE NORMAL ELECTROCARDIOGRAM NO PREVIOUS ECG AVAILABLE FOR COMPARISON Electronically Signed On 05-06-2023 14:11:58 CDT by Delano Dc M.D.
[2023-05-06 11:57] LABS: Glucose Point of Care 177 mg/dl (65-105)
--- NOTE | 2023-05-06 12:36 | PM.IMPN ---
Progress Note: A&P Assessment and Plan (1) Acute pancreatitis: Qualifiers: Pancreatitis type: drug induced Code(s): K85.90 - Acute pancreatitis without necrosis or infection, unspecified Status: Acute Assessment and Plan: Pancreatitis most likely due to triglycerides being elevated over 2500. Lipase elevated to [address] abdomen pelvis revealing acute pancreatitis. Start on Fenofibrate. IV fluids initiated. NPO diet due to pt having abdominal pain with oral intake. 05/06/23 Repeat triglycerides today approximately 523. Lipase returned to normal. (2) Elevated lipase: Code(s): R74.8 - Abnormal levels of other serum enzymes Status: Acute Assessment and Plan: Secondary to acute pancreatitis. Continue pain control and IV hydration (3) Diabetes: Code(s): E11.9 - Type 2 diabetes mellitus without complications Status: Acute Assessment and Plan: Patient is hyperglycemic, not in DKA. Would continue IV hydration, hold ozempic, continue lantuus and place on SSI (4) Hypertriglyceridemia: Code(s): E78.1 - Pure hyperglyceridemia Status: Acute Assessment and Plan: On presentation patient's triglycerides were greater than 2500. He was placed on fenofibrate. Subjective Date/time seen: 05/06/23 12:36 Interval history: Patient continues to having abdominal pain. Has right upper quadrant pain to palpation. He has been tachycardic which is likely due to patients pain level. He denies any nausea. Complains to constipation. The nurse called around 2:00 p.m. stating that patient had developed a fever of 102.5 with adjunctive tachycardia. Patient still having increased abdominal pain. Repeat CT abdomen pelvis due to fever and tachycardia and unresolved abdominal pain. Started on Zosyn to cover for GI infection. Review of Systems Review of Systems: All systems reviewed & are unremarkable except as noted in HPI and below Exam Narrative: GENERAL: Comfortable, no acute distress HENMT: moist mucous membranes EYES: EOM intact b/l RESPIRATORY: clear to auscultation CARDIO: RRR GI: soft, Right upper quadrant and umbillicus tenderness to palpation, bowel sounds present SKIN: no rashes EXTREMITIES: no edema, redness or tenderness Objective Data Vital Signs Vital Signs: Vital Signs - 24 hr 05/05/23 14:10 05/05/23 20:53 05/05/23 20:00 Temperature 98.7 F 97.9 F Pulse Rate 115 H 124 H Respiratory Rate 18 18 Blood Pressure 157/82 H 136/80 Pulse Oximetry 95 92 Oxygen Delivery Room Air 05/06/23 05:40 05/06/23 08:50 Temperature 98.3 F Pulse Rate 128 H Respiratory Rate 18 Blood Pressure 134/79 Pulse Oximetry 90 Oxygen Delivery Room Air Intake/Output Intake/Output: Intake & Output 05/03/23 05/04/23 05/05/23 05/06/23 23:59 23:59 23:59 23:59 Intake Total 1999 2530 2390 1000 Output Total 250 3 Balance 1999 2530 2140 997 Meds/Results Medications: Active Medications Generic Name Dose Route Start Last Admin Trade Name Freq PRN Reason Stop Dose Admin Dextrose 12.5 gm 05/04/23 03:47 Dextrose 50% 25 Gm/50 Ml Syringe IV PUSH PRN PRN Hypoglycemia Protocol Fenofibrate 160 mg 05/05/23 09:00 05/06/23 08:07 Fenofibrate 160 Mg Tablet PO 160 mg DAILY JENNIFER Administration Glucagon 1 mg 05/04/23 03:47 Glucagon For Inj 1 Mg Vial IM PRN PRN Hypoglycemia Protocol Glucose 15 gm 05/04/23 03:47 Glucose Oral Gel 15 Gm Of Glucse In 37.5 Gm Tube PO PRN PRN Hypoglycemia Protocol Hydromorphone HCl 1 mg 05/04/23 00:04 05/06/23 09:45 Hydromorphone Hcl Inj (*Crx) 1 Mg/Ml Syr IV PUSH 1 mg Q4H PRN Administration Pain Rated 7-10 Lactated Ringer's 1,000 mls @ 75 mls/hr 05/03/23 22:45 05/06/23 04:40 Lr - Lactated Ringers Iv IV CONT 75 mls/hr .[id number] JENNIFER Administration Dextrose 1,000 ml
[2023-05-06 13:28] LABS: Potassium 3.7 mmol/L (3.4-5.0)
[2023-05-06 13:36] VITALS: TEMP 39.2
[2023-05-06] MEDS: ACETAMINOPHEN 325 MG TABLET 650 MG PO (13:36)
[2023-05-06 13:59] VITALS: BP 140/78; PULSE 120; RESP 20; TEMP 39.2; O2SAT 91
[2023-05-06 15:55] VITALS: TEMP 37.5
[2023-05-06] MEDS: PIPERACILLN/TAZ 3.375GM/NS50ML 3.375 GM/50 ML BAG IVPB (16:01)
[2023-05-06 16:02] LABS: Lactic Acid Reflex 0.8 mmol/L (0.7-2.0)
[2023-05-06] MEDS: HYDROcodone/acetaminophen (*CRX) 5-325 MG TABLET 1 TAB PO ×2 (16:04→21:08)
[2023-05-06 17:27] LABS: Glucose Point of Care 180 mg/dl (65-105)
[2023-05-06] MEDS: risperiDONE 0.5 MG TABLET PO (21:03)
[2023-05-06 21:10] LABS: Glucose Point of Care 130 mg/dl (65-105)
[2023-05-06 21:52] VITALS: BP 141/84; PULSE 113; RESP 18; TEMP 37.8; O2SAT 87
[2023-05-06 22:03] VITALS: PULSE 110; O2SAT 94
[2023-05-07] VITALS (14 sets, daily range): BP systolic 137–151; BP diastolic 77–82; PULSE 81–119; RESP 18–148; TEMP 36.9–37.9; O2SAT 92–97
[2023-05-07] MEDS: PIPERACILLN/TAZ 3.375GM/NS50ML 3.375 GM/50 ML BAG IVPB ×4 (00:58→17:17)
[2023-05-07] MEDS: HYDROcodone/acetaminophen (*CRX) 5-325 MG TABLET 1 TAB PO ×4 (04:32→23:57)
[2023-05-07 05:32] LABS: Glucose Point of Care 160 mg/dl (65-105)
[2023-05-07 05:47] LABS: Basophils Absolute Auto 0.1 K/mm3 (0.0-0.1); Basophils Percent Auto 0.6 % (0.2-1.2); Eosinophils Absolute Auto 0.2 K/mm3 (0-0.3); Eosinophils Percent Auto 1.2 % (0-4.4); Hematocrit 35.5 % (42.0-52.0); Hemoglobin 11.6 g/dL (14.0-18.0); Immature Granulocyte Absolute 0.07 K/mm3 (0.00-0.031); Immature Granulocyte Percent A 0.6 % (0-0.5); Lymphocytes Absolute Auto 1.62 K/mm3 (0.9-3.2); Mean Corpuscular HGB Conc 32.7 g/dl (32-36); Mean Corpuscular Hemoglobin 28.5 pg (26-34); Mean Corpuscular Volume 87.2 fl (80-100); Mean Platelet Volume 10.3 fl (7.4-10.4); Monocytes Absolute Auto 1.3 K/mm3 (0.1-0.6); Monocytes Percent Auto 10.7 % (2.6-8.5); Neutrophils Absolute Auto 9.2 K/mm3 (1.3-6.7); Neutrophils Percent Auto 73.9 % (45.5-73.1); Platelet Count Result 243 k/mm3 (150-375); Red Blood Count 4.07 M/mm3 (4.6-6.20); Red Cell Distribution Width 13.9 % (11.5-14.5); White Blood Count 12.5 K/mm3 (4.5-10.0)
[2023-05-07 06:02] LABS: Alanine Aminotransferase 43 U/L (6-50); Albumin Level 3.4 g/dL (3.5-5.1); Alkaline Phosphatase 84 U/L (38-126); Anion Gap 7 mmol/L (8-16); Aspartate Amino Transferase 43 U/L (17-59); Bilirubin,Total 1.4 mg/dL (0.2-1.3); Blood Urea Nitrogen 10 mg/dL (9-20); Calcium 8.6 mg/dL (8.4-10.2); Carbon Dioxide 30 mmol/L (22-30); Chloride 97 mmol/L (98-107); Estimated CRCL calculation 181 ml/min; Estimated Glomerular Filt Rate > 60; Glucose 164 mg/dL (65-110); Potassium 3.3 mmol/L (3.4-5.0); Sodium 134 mmol/L (137-145)
[2023-05-07] MEDS: POTASSIUM CHLORIDE INJ 40 MEQ in SODIUM CHLORIDE 0.9% IV 500 ML 130 MEQ IVPB (07:53)
[2023-05-07 08:08] LABS: Glucose Point of Care 139 mg/dl (65-105)
[2023-05-07] MEDS: FENOFIBRATE 160 MG TABLET PO (09:16)
[2023-05-07] MEDS: SERTRALINE HCL 50 MG TABLET PO (09:16)
[2023-05-07] MEDS: risperiDONE 1 MG TABLET PO ×2 (09:17→17:10)
[2023-05-07] MEDS: PANTOPRAZOLE SODIUM IV 40 MG VIAL IV PUSH (09:18)
[2023-05-07] MEDS: INSULIN GLARGINE (*BKC) 100 UNITS/ML 30 UNITS SUB-Q ×2 (09:24→17:14)
[2023-05-07 11:50] LABS: Glucose Point of Care 164 mg/dl (65-105)
--- NOTE | 2023-05-07 12:10 | PM.IMPN ---
Progress Note: A&P Assessment and Plan (1) Acute pancreatitis: Qualifiers: Pancreatitis type: drug induced Code(s): K85.90 - Acute pancreatitis without necrosis or infection, unspecified Status: Acute Assessment and Plan: Pancreatitis most likely due to triglycerides being elevated over 2500. Lipase elevated to [address] abdomen pelvis revealing acute pancreatitis. Start on Fenofibrate. IV fluids initiated. NPO diet due to pt having abdominal pain with oral intake. 05/06/23 Repeat triglycerides approximately 523. Lipase returned to normal. CT abdomen pelvis on 05/06/2023 reveals worsening acute pancreatitis. Patient developed fever and increased abdominal pain and was started on Zosyn. Concern for acute cholangitis due to fever, abdominal pain and elevated bilirubin. GI consulted. (2) Elevated lipase: Code(s): R74.8 - Abnormal levels of other serum enzymes Status: Acute Assessment and Plan: Secondary to acute pancreatitis. Continue pain control and IV hydration (3) Diabetes: Code(s): E11.9 - Type 2 diabetes mellitus without complications Status: Acute Assessment and Plan: Patient is hyperglycemic, not in DKA. Would continue IV hydration, hold ozempic, continue lantuus and place on SSI (4) Hypertriglyceridemia: Code(s): E78.1 - Pure hyperglyceridemia Status: Acute Assessment and Plan: On presentation patient's triglycerides were greater than 2500. He was placed on fenofibrate. Subjective Date/time seen: 05/07/23 12:10 Interval history: On 05/06/2023 patient developed fever up to 102.5 and severe abdominal pain, and tachycardia. CTA chest negative for PE. CTA abdomen pelvis revealing worsening pancreatitis. Chest x-ray revealing atelectasis versus pneumonia and chest CT states that bilateral lower lung opacities likely representing atelectasis. due to fever and severe abdominal pain patient was started on Zosyn. 05/07/23 Patient feeling a little better today than yesterday. He continues to have right upper quadrant pain. He denies any nausea vomiting. He has had bowel movements. Explained to patient's father and to the patient I have consulted GI Due to concerns for worsening pancreatitis, elevated bilirubin and fever. I have ordered an MRCP. Awaiting any further recommendations from GI specialist. Review of Systems Review of Systems: All systems reviewed & are unremarkable except as noted in HPI and below Exam Narrative: GENERAL: Comfortable, no acute distress HENMT: moist mucous membranes EYES: EOM intact b/l RESPIRATORY: clear to auscultation CARDIO: RRR GI: soft, Right upper quadrant tenderness to palpation, bowel sounds present SKIN: no rashes EXTREMITIES: no edema, redness or tenderness Objective Data Vital Signs Vital Signs: Vital Signs - 24 hr 05/06/23 13:36 05/06/23 13:59 05/06/23 15:55 Temperature 102.5 F H 102.5 F H 99.5 F Pulse Rate 120 H Respiratory Rate 20 Blood Pressure 140/78 Pulse Oximetry 91 Oxygen Delivery Oxygen Flow Rate 05/06/23 21:52 05/06/23 22:03 05/06/23 20:00 Temperature 100.1 F H Pulse Rate 113 H 110 H Respiratory Rate 18 Blood Pressure 141/84 H Pulse Oximetry 87 L 94 Oxygen Delivery Room Air Oxygen Flow Rate 05/06/23 22:03 05/07/23 01:27 05/07/23 02:29 Temperature 99.0 F Pulse Rate 119 H Respiratory Rate 18 96 H Blood Pressure 151/77 H Pulse Oximetry 94 96 97 Oxygen Delivery Nasal Cannula Nasal Cannula Oxygen Flow Rate 2 2 05/07/23 00:00 05/07/23 05:09 05/07/23 04:00 Temperature 99.2 F Pulse Rate 115 H 104 H 106 H Respiratory Rate 20 Blood Pressure 137/80 Pulse Oximetry 94 Oxygen Delivery Oxygen Flow Rate 05/07/23 09:18 05/07/23 08:03 Temperature Pulse Rate 103 H Respiratory Rate 20 Blood Pressure Pulse Oximetry 94 Oxygen Delivery Jaylon
[2023-05-07] MEDS: LACTATED RINGERS 1,000 ML 75 ML IV CONT (13:17)
--- NOTE | 2023-05-07 13:31 | WPDGICN ---
Assessment and Plan Assessment and plan (1) Acute pancreatitis: Qualifiers: Pancreatitis type: drug induced Code(s): K85.90 - Acute pancreatitis without necrosis or infection, unspecified Status: Acute Assessment and Plan: probably from elevated TG level- has been trending down probably will need to discontinue ozempic because new onset of pancreatitis MRCP ordered (mild elevated bilirubin) but CT scan normal biliary system clinically better, start liquid diet for now (2) Hypertriglyceridemia: Code(s): E78.1 - Pure hyperglyceridemia Status: Acute Assessment and Plan: will need fibrates/niacin with diet (3) SIRS (systemic inflammatory response syndrome): Code(s): R65.10 - Systemic inflammatory response syndrome (SIRS) of non-infectious origin without acute organ dysfunction Status: Acute Assessment and Plan: had fever and high wbc, probably from pancreatitis started on abx monitor (4) Abdominal pain: Code(s): R10.9 - Unspecified abdominal pain Status: Acute Assessment and Plan: improved and feeling better (5) Diabetes: Code(s): E11.9 - Type 2 diabetes mellitus without complications Status: Acute Assessment and Plan: on meds discontinue ozempic (6) Autism: Code(s): F84.0 - Autistic disorder Status: Acute (7) Elevated lipase: Code(s): R74.8 - Abnormal levels of other serum enzymes Status: Acute GI Consult Note Consult date/time: 05/07/23 13:31 Reason for consult: pancreatitis HPI: Nathaniel Cronin is a 28 year old male with history of hyperlipidemia on atorvastatin and type 2 diabetes on insulin, Ozempic and farxiga, autism on psych meds who was admitted 8 days ago after he presented with one day of progressive severe upper abdominal pain, initially diffuse throughout the abdomen but worse in the epigastrium and right upper quadrant.?He was diagnosed with pancreatitis with lipase 400, TG level over 2000. Denies alcohol use of previous episode of pancreatitis. Repeat CT scan showed worsening pancreatitis and fatty liver (after he developed fever and tachycardia), started on zosyn. Bilirubin mildly elevated with normal transaminases. Today he is feeling better with less pain, repeat lipase normal. Review of Systems Constitutional: Comments: fever Eyes: Eyes: Denies blurry vision ENT: Reports Normal hearing present Cardiovascular: Cardiovascular: Denies chest pain Respiratory: Respiratory: Denies chest congestion Gastrointestinal: Gastrointestinal: Reports abdominal pain and Reports nausea Genitourinary: Genitourinary: Denies urinary frequency Musculoskeletal: Musculoskeletal: Denies arthralgias Integumentary/Breasts: Skin/Breast: Denies rash Neurologic: Denies confusion Psychiatric: Comments: h/o autism [facility] Past Medical History Medical History (Updated 05/07/23 @ 13:40 by Larry Menchaca MD) Autism Diabetes Hyperlipidemia SIRS (systemic inflammatory response syndrome) Surgical History Surgical History No pertinent past surgical history Family History Family History Mother Family history non-contributory Social History Social History Smoking status: Never smoker Tobacco type: cigars Additional smoking assessment comments: only smokes cigars on special occasions Alcohol intake: never Substance use: never Lack of Transportation: No Lack of Food: Never True Current Housing: I Have Housing Concerned About Future Housing: No Difficulty Paying Gas/Electric Bills: No Difficulty Paying for Meds: No Currently Unemployed: No Education: Decline to Answer Difficulty w/ Childcare or Family Care: No Living arrangements: with family Gender identity (
[2023-05-07] MEDS: ACETAMINOPHEN 325 MG TABLET 650 MG PO (13:42)
[2023-05-07 17:05] LABS: Glucose Point of Care 140 mg/dl (65-105)
[2023-05-07] MEDS: metFORMIN HCL 500 MG TABLET 1000 MG PO (17:10)
[2023-05-07 21:17] LABS: Glucose Point of Care 141 mg/dl (65-105)
[2023-05-07] MEDS: risperiDONE 0.5 MG TABLET PO (21:48)
[2023-05-08] MEDS: PIPERACILLN/TAZ 3.375GM/NS50ML 3.375 GM/50 ML BAG IVPB ×4 (00:08→18:04)
[2023-05-08 05:08] VITALS: BP 149/76; PULSE 100; RESP 18; TEMP 35.7; O2SAT 95
[2023-05-08] MEDS: HYDROmorphone HCL INJ (*CRX) 1 MG/ML SYR IV PUSH (05:20)
[2023-05-08] MEDS: LACTATED RINGERS 1,000 ML 75 ML IV CONT ×2 (05:21→21:49)
[2023-05-08 05:33] LABS: Basophils Absolute Auto 0.1 K/mm3 (0.0-0.1); Basophils Percent Auto 0.7 % (0.2-1.2); Eosinophils Absolute Auto 0.3 K/mm3 (0-0.3); Eosinophils Percent Auto 2.1 % (0-4.4); Hemoglobin 12.9 g/dL (14.0-18.0); Immature Granulocyte Absolute 0.12 K/mm3 (0.00-0.031); Immature Granulocyte Percent A 0.8 % (0-0.5); Lymphocytes Absolute Auto 2.77 K/mm3 (0.9-3.2); Lymphocytes Percent Auto 19.5 % (18.3-44.2); Mean Corpuscular HGB Conc 32.3 g/dl (32-36); Mean Platelet Volume 9.6 fl (7.4-10.4); Monocytes Absolute Auto 1.4 K/mm3 (0.1-0.6); Monocytes Percent Auto 9.5 % (2.6-8.5); Neutrophils Absolute Auto 9.6 K/mm3 (1.3-6.7); Neutrophils Percent Auto 67.4 % (45.5-73.1); Platelet Count Result 276 k/mm3 (150-375); Red Cell Distribution Width 13.5 % (11.5-14.5); White Blood Count 14.2 K/mm3 (4.5-10.0)
[2023-05-08 05:42] LABS: Potassium 3.5 mmol/L (3.4-5.0)
[2023-05-08 05:49] LABS: Alanine Aminotransferase 70 U/L (6-50); Albumin Level 3.8 g/dL (3.5-5.1); Alkaline Phosphatase 114 U/L (38-126); Anion Gap 9 mmol/L (8-16); Aspartate Amino Transferase 69 U/L (17-59); Bilirubin,Total 1.3 mg/dL (0.2-1.3); Blood Urea Nitrogen 8 mg/dL (9-20); Calcium 9.1 mg/dL (8.4-10.2); Carbon Dioxide 25 mmol/L (22-30); Chloride 97 mmol/L (98-107); Estimated CRCL calculation 213 ml/min; Estimated Glomerular Filt Rate > 60; Glucose 106 mg/dL (65-110); Sodium 131 mmol/L (137-145)
--- NOTE | 2023-05-08 07:27 | PM.IMPN ---
Progress Note: A&P Assessment and Plan (1) Acute pancreatitis: Qualifiers: Pancreatitis type: drug induced Code(s): K85.90 - Acute pancreatitis without necrosis or infection, unspecified Status: Acute Assessment and Plan: Pancreatitis most likely due to triglycerides being elevated over 2500. Lipase elevated to [address] abdomen pelvis revealing acute pancreatitis. Start on Fenofibrate. IV fluids initiated. 05/06/23 Repeat triglycerides approximately 523. Lipase returned to normal. CT abdomen pelvis on 05/06/2023 reveals worsening acute pancreatitis. Patient developed fever and increased abdominal pain and was started on Zosyn. Concern for acute cholangitis due to fever, abdominal pain and elevated bilirubin. GI consulted. Recommending MRCP which shows acute interstitial pancreatitis, no choledocholithiasis. Was advanced to full liquid last night but had increased pain. Will remain on clears-full liquid today. (2) Elevated lipase: Code(s): R74.8 - Abnormal levels of other serum enzymes Status: Acute Assessment and Plan: Secondary to acute pancreatitis. Continue pain control and IV hydration Tbili 1.3, AST 69, ALT 70 (3) Diabetes: Code(s): E11.9 - Type 2 diabetes mellitus without complications Status: Acute Assessment and Plan: Patient is hyperglycemic, not in DKA. Would continue IV hydration, hold ozempic, continue lantus and place on SSI Stopping Metformin while inpatient and not on a DM diet (4) Hypertriglyceridemia: Code(s): E78.1 - Pure hyperglyceridemia Status: Acute Assessment and Plan: On presentation patient's triglycerides were greater than 2500. He was placed on fenofibrate. Triglycerides have downtrended with repeat 523 Plan Continue IV hydration Continue IV pain medications, zofran Continue liquid diet today may advance tomorrow GI recommendations appreciated Subjective Date/time seen: 05/08/23 07:27 Interval history: Narrative: ? Patient is a 28-year-old male with history of hyperlipidemia and type 2 diabetes on Ozempic and faxiga, autism here with upper abdominal pain.? He notes that the pain began about 1 day ago and has progressively worsened.? ? Pain is diffuse throughout the abdomen but worse in the epigastrium and right upper quadrant.? ? He does note that when he ate some carrots earlier today it seemed to make the pain worse.? Denies prior history of similar in the past.? He notes he has had some associated nausea and some loose stools.? ? Denies fever and chills.? Denies flank pain, denies urinary symptoms.? He did have a prior appendectomy in the past. No cough, congestion,chest pain.Denied N/V or fever. 05/04: Patient lying in bed with mother at bedside.? Patient is adopted and family history is unknown.? explained to patient's mom that elevated triglycerides can sometimes be genetic.? Patient will likely need plasmapheresis or insulin drip to decrease the amount of triglycerides.? He continues to have abdominal pain near his umbilicus.? He has pain to palpation in the right upper quadrant.? He denies any nausea vomiting.? He did have breakfast this morning and states that it did not worsen his pain.? Discussed with the family that it would probably be best if he is NPO for now. 05/05: Patient continues to have abdominal pain although it is better than yesterday.? He feels up to trying a diet neck discussed with him that we can start with a clear liquid diet but if he does not do well we will discontinue this diet.? He denies any nausea.? He states that he has have a bowel movement 2 days and I started him on some MiraLax. 05/06/2023 patient developed fever up to 102.5 and severe abdominal pain, and tachycardia. CTA chest negative for PE. CTA abdomen pelvis revealing worsening pancreatitis. Chest x-ray revealing atelectasis versus pneumonia and chest CT states that bila
[2023-05-08 08:32] LABS: Glucose Point of Care 123 mg/dl (65-105)
[2023-05-08] MEDS: SERTRALINE HCL 50 MG TABLET PO (08:47)
[2023-05-08] MEDS: FENOFIBRATE 160 MG TABLET PO (08:47)
[2023-05-08] MEDS: PANTOPRAZOLE SODIUM IV 40 MG VIAL IV PUSH (08:47)
[2023-05-08 08:48] VITALS: PULSE 100; RESP 18; O2SAT 95
[2023-05-08] MEDS: metFORMIN HCL 500 MG TABLET 1000 MG PO (08:48)
[2023-05-08] MEDS: risperiDONE 1 MG TABLET PO ×2 (08:48→17:03)
[2023-05-08] MEDS: INSULIN GLARGINE (*BKC) 100 UNITS/ML 30 UNITS SUB-Q ×2 (08:54→17:04)
[2023-05-08 11:55] LABS: Glucose Point of Care 165 mg/dl (65-105)
--- NOTE | 2023-05-08 13:44 | WPDGIPROGNO ---
Progress Note: A&P Assessment and Plan (1) Acute pancreatitis: Qualifiers: Pancreatitis type: drug induced Code(s): K85.90 - Acute pancreatitis without necrosis or infection, unspecified Status: Acute Assessment and Plan: this is from hypertriglyceridemia given new episode of pancreatitis probably will be forrest not to use ozempic anymore after he leaves the hospital on liquid diet for now, reassess tomorrow and probably can advance MRCP reviewed, pancreatitis with normal biliary system, no need of ercp (2) Hypertriglyceridemia: Code(s): E78.1 - Pure hyperglyceridemia Status: Acute Assessment and Plan: will need treatment and diet (3) Abdominal pain: Code(s): R10.9 - Unspecified abdominal pain Status: Acute Assessment and Plan: keeps improving (4) SIRS (systemic inflammatory response syndrome): Code(s): R65.10 - Systemic inflammatory response syndrome (SIRS) of non-infectious origin without acute organ dysfunction Status: Acute Assessment and Plan: fever few days ago, this could be also from pancreatitis but empirically on abx (5) Diabetes: Code(s): E11.9 - Type 2 diabetes mellitus without complications Status: Acute (6) Autism: Code(s): F84.0 - Autistic disorder Status: Acute Subjective Date/time seen: 05/08/23 13:44 Interval history: slowly feeling better, less abdominal pain and has been tolerating liquid diet mother at bedside Review of Systems Review of Systems: All systems reviewed & are unremarkable except as noted in HPI and below Exam Const: General: comfortable HENMT: Face/Nose/Sinus: Normal nares present Eyes: General: appearance normal, both eyes and all related structures Neck: Neck: supple Resp: Auscultation: clear to auscultation bilaterally Cardio: Rate: regular rate GI: GI Palp: Yes Soft to palpation, Yes Tenderness to palpation present (GI) (mild ttp in epigastric, no rebound.) and No Guarding due to palpation present (GI) Skin: General skin exam: normal color Neuro: Speech: normal speech Motor exam (neuro): 5/5 motor strength present throughout Extrem: General: normal to inspection Psych: Other: awake and alert, autist Objective Data Vital Signs Vital Signs: Vital Signs - 24 hr 05/07/23 13:58 05/07/23 14:24 05/07/23 19:56 Temperature 100.1 F H 98.4 F 99.6 F Pulse Rate 81 100 Respiratory Rate 18 148 H Blood Pressure 144/79 H 149/82 H Pulse Oximetry 92 92 Oxygen Delivery Oxygen Flow Rate Fraction of Inspired Oxygen 05/07/23 20:15 05/08/23 05:08 05/08/23 08:48 Temperature 96.3 F L Pulse Rate 100 100 Respiratory Rate 18 18 Blood Pressure 149/76 H Pulse Oximetry 97 95 95 Oxygen Delivery Nasal Cannula Room Air Oxygen Flow Rate 2 Fraction of Inspired Oxygen 28 Intake/Output Intake/Output: Intake & Output 05/05/23 05/06/23 05/07/23 05/08/23 23:59 23:59 23:59 23:59 Intake Total 2390 2570 2230 1960 Output Total 250 3 Balance 2140 2567 2230 1959 Meds/Results Medications: Active Medications Generic Name Dose Route Start Last Admin Trade Name Freq PRN Reason Stop Dose Admin Acetaminophen 650 mg 05/06/23 12:40 05/07/23 13:42 Acetaminophen 325 Mg Tablet PO 650 mg Q6H PRN Administration Mild Pain (1-3) or Fever Hydrocodone Bitart/Acetaminophen 1 tab 05/06/23 12:40 05/07/23 23:57 Hydrocodone/Acetaminophen (*Crx) 5-325 Mg Tablet PO 1 tab Q4H PRN Administration Pain Rated 4-6 Dextrose 12.5 gm 05/04/23 03:47 Dextrose 50% 25 Gm/50 Ml Syringe IV PUSH PRN PRN Hypoglycemia Protocol Fenofibrate 160 mg 05/05/23 09:00 05/08/23 08:47 Fenofibrate 160 Mg Tablet PO 160 mg DAILY JENNIFER Administration Glucagon 1 mg 05/04/23 03:47 Glucagon For Inj 1 Mg Vial IM PRN PRN Hypoglycemia Protocol Glucose 15 gm 05/04/23 03:47 Glucose
[2023-05-08 14:00] VITALS: BP 147/89; PULSE 96; RESP 16; TEMP 36.5; O2SAT 98
[2023-05-08 17:03] LABS: Glucose Point of Care 167 mg/dl (65-105)
[2023-05-08 21:30] VITALS: BP 142/84; PULSE 100; RESP 14; TEMP 36.5; O2SAT 96
[2023-05-08 21:33] LABS: Glucose Point of Care 154 mg/dl (65-105)
[2023-05-08] MEDS: risperiDONE 0.5 MG TABLET PO (21:49)
[2023-05-08] MEDS: HYDROcodone/acetaminophen (*CRX) 5-325 MG TABLET 1 TAB PO (21:52)
[2023-05-09] MEDS: PIPERACILLN/TAZ 3.375GM/NS50ML 3.375 GM/50 ML BAG IVPB ×3 (00:28→12:02)
[2023-05-09] MEDS: HYDROcodone/acetaminophen (*CRX) 5-325 MG TABLET 1 TAB PO ×2 (02:47→11:17)
[2023-05-09 05:29] LABS: Basophils Absolute Auto 0.1 K/mm3 (0.0-0.1); Basophils Percent Auto 0.9 % (0.2-1.2); Eosinophils Absolute Auto 0.3 K/mm3 (0-0.3); Eosinophils Percent Auto 1.7 % (0-4.4); Hematocrit 38.2 % (42.0-52.0); Hemoglobin 12.6 g/dL (14.0-18.0); Immature Granulocyte Absolute 0.42 K/mm3 (0.00-0.031); Immature Granulocyte Percent A 2.8 % (0-0.5); Lymphocytes Absolute Auto 2.53 K/mm3 (0.9-3.2); Lymphocytes Percent Auto 16.9 % (18.3-44.2); Mean Corpuscular Hemoglobin 28.3 pg (26-34); Mean Corpuscular Volume 85.7 fl (80-100); Mean Platelet Volume 9.7 fl (7.4-10.4); Monocytes Absolute Auto 1.7 K/mm3 (0.1-0.6); Monocytes Percent Auto 11.6 % (2.6-8.5); Neutrophils Absolute Auto 9.9 K/mm3 (1.3-6.7); Neutrophils Percent Auto 66.1 % (45.5-73.1); Nucleated Red Blood Cells Perc 0.2 % (0.0-0.2); Platelet Count Result 331 k/mm3 (150-375); Red Blood Count 4.46 M/mm3 (4.6-6.20); Red Cell Distribution Width 13.2 % (11.5-14.5)
[2023-05-09 05:44] LABS: Alanine Aminotransferase 112 U/L (6-50); Albumin Level 3.7 g/dL (3.5-5.1); Alkaline Phosphatase 136 U/L (38-126); Anion Gap 9 mmol/L (8-16); Aspartate Amino Transferase 84 U/L (17-59); Blood Urea Nitrogen 9 mg/dL (9-20); Calcium 9.2 mg/dL (8.4-10.2); Carbon Dioxide 23 mmol/L (22-30); Chloride 99 mmol/L (98-107); Estimated CRCL calculation 213 ml/min; Estimated Glomerular Filt Rate > 60; Glucose 133 mg/dL (65-110); Potassium 3.1 mmol/L (3.4-5.0); Sodium 131 mmol/L (137-145)
[2023-05-09 05:55] LABS: CRP 21.9 mg/dL (<1.0)
[2023-05-09 06:44] VITALS: BP 141/82; PULSE 87; RESP 16; TEMP 36.6; O2SAT 97
--- NOTE | 2023-05-09 06:57 | PM.IMPN ---
Progress Note: A&P Assessment and Plan (1) Acute pancreatitis: Qualifiers: Pancreatitis type: drug induced Code(s): K85.90 - Acute pancreatitis without necrosis or infection, unspecified Status: Acute Assessment and Plan: Pancreatitis most likely due to triglycerides being elevated over 2500. Lipase elevated to [address] abdomen pelvis revealing acute pancreatitis. Start on Fenofibrate for triglycerides 2500 IV fluids initiated. 05/06/23 Repeat triglycerides approximately 523. Lipase returned to normal. CT abdomen pelvis on 05/06/2023 reveals worsening acute pancreatitis. Patient developed fever and increased abdominal pain and was started on Zosyn. Concern for acute cholangitis due to fever, abdominal pain and elevated bilirubin. GI consulted. Recommending MRCP which shows acute interstitial pancreatitis, no choledocholithiasis. Tolerated Full liquid diet yesterday. Will advance to low fat diet for lunch. (2) Elevated lipase: Code(s): R74.8 - Abnormal levels of other serum enzymes Status: Acute Assessment and Plan: Secondary to acute pancreatitis. Continue pain control and IV hydration Tbili 1.0, AST 69->84, ALT 70->112, Alk phos 136 (3) Diabetes: Code(s): E11.9 - Type 2 diabetes mellitus without complications Status: Acute Assessment and Plan: Patient is hyperglycemic, not in DKA. Would continue IV hydration, hold ozempic, continue lantus and place on SSI Stopping Metformin while inpatient and not on a DM diet (4) Hypertriglyceridemia: Code(s): E78.1 - Pure hyperglyceridemia Status: Acute Assessment and Plan: On presentation patient's triglycerides were greater than 2500. He was placed on fenofibrate. Triglycerides have downtrended with repeat 523 Plan Continue IV hydration. If he tolerates a diet can d/c and transition to oral antibiotics. Labs reviewed, replace K+ with 40 meq IVP Continue IV pain medications, zofran Advance diet for lunch GI recommendations appreciated Subjective Date/time seen: 05/09/23 06:57 Interval history: Narrative: ? Patient is a 28-year-old male with history of hyperlipidemia and type 2 diabetes on Ozempic and faxiga, autism here with upper abdominal pain.? He notes that the pain began about 1 day ago and has progressively worsened.? ? Pain is diffuse throughout the abdomen but worse in the epigastrium and right upper quadrant.? ? He does note that when he ate some carrots earlier today it seemed to make the pain worse.? Denies prior history of similar in the past.? He notes he has had some associated nausea and some loose stools.? ? Denies fever and chills.? Denies flank pain, denies urinary symptoms.? He did have a prior appendectomy in the past. No cough, congestion,chest pain.Denied N/V or fever. 05/04: Patient lying in bed with mother at bedside.? Patient is adopted and family history is unknown.? explained to patient's mom that elevated triglycerides can sometimes be genetic.? Patient will likely need plasmapheresis or insulin drip to decrease the amount of triglycerides.? He continues to have abdominal pain near his umbilicus.? He has pain to palpation in the right upper quadrant.? He denies any nausea vomiting.? He did have breakfast this morning and states that it did not worsen his pain.? Discussed with the family that it would probably be best if he is NPO for now. 05/05: Patient continues to have abdominal pain although it is better than yesterday.? He feels up to trying a diet neck discussed with him that we can start with a clear liquid diet but if he does not do well we will discontinue this diet.? He denies any nausea.? He states that he has have a bowel movement 2 days and I started him on some MiraLax. 05/06/2023 patient developed fever up to 102.5 and severe abdominal pain, and tachycardia. CTA chest negative for PE. CTA abdomen pelvis revealing w
[2023-05-09] MEDS: POTASSIUM CHLORIDE INJ 40 MEQ in SODIUM CHLORIDE 0.9% IV 500 ML 130 MEQ IVPB (07:49)
[2023-05-09 08:38] LABS: Glucose Point of Care 135 mg/dl (65-105)
[2023-05-09 09:11] VITALS: RESP 16; O2SAT 97
[2023-05-09] MEDS: PANTOPRAZOLE SODIUM IV 40 MG VIAL IV PUSH (09:11)
[2023-05-09] MEDS: FENOFIBRATE 160 MG TABLET PO (09:11)
[2023-05-09] MEDS: SERTRALINE HCL 50 MG TABLET PO (09:11)
[2023-05-09] MEDS: risperiDONE 1 MG TABLET PO ×2 (09:11→16:49)
[2023-05-09] MEDS: INSULIN GLARGINE (*BKC) 100 UNITS/ML 30 UNITS SUB-Q ×2 (09:16→16:54)
[2023-05-09 12:19] LABS: Glucose Point of Care 179 mg/dl (65-105)
--- NOTE | 2023-05-09 14:16 | WPDGIPROGNO ---
Progress Note: A&P Assessment and Plan (1) Acute pancreatitis: Qualifiers: Pancreatitis type: drug induced Code(s): K85.90 - Acute pancreatitis without necrosis or infection, unspecified Status: Acute Assessment and Plan: this is from hypertriglyceridemia given new episode of pancreatitis probably will be forrest not to use ozempic anymore after he leaves the hospital tolerating low fat diet MRCP reviewed, pancreatitis with normal biliary system, no need of ercp home soon and he can follow-up in office (2) Hypertriglyceridemia: Code(s): E78.1 - Pure hyperglyceridemia Status: Acute Assessment and Plan: will need treatment and diet repeat labs as outpatient (3) Abdominal pain: Code(s): R10.9 - Unspecified abdominal pain Status: Acute Assessment and Plan: almost gone now (4) SIRS (systemic inflammatory response syndrome): Code(s): R65.10 - Systemic inflammatory response syndrome (SIRS) of non-infectious origin without acute organ dysfunction Status: Acute Assessment and Plan: fever few days ago, this could be also from pancreatitis but empirically on abx, ok ot discontinue clinically much better (5) Diabetes: Code(s): E11.9 - Type 2 diabetes mellitus without complications Status: Acute (6) Autism: Code(s): F84.0 - Autistic disorder Status: Acute Subjective Date/time seen: 05/09/23 14:16 Interval history: doing much better with pain almost gone, no nausea and tolerating diet he is feeling like going home soon Review of Systems Review of Systems: All systems reviewed & are unremarkable except as noted in HPI and below Exam Const: General: comfortable HENMT: Face/Nose/Sinus: Normal nares present Eyes: General: appearance normal, both eyes and all related structures Neck: Neck: supple Resp: Auscultation: clear to auscultation bilaterally Cardio: Rate: regular rate GI: GI Palp: Yes Soft to palpation, No Tenderness to palpation present (GI) and No Guarding due to palpation present (GI) Auscultation: normal bowel sounds Skin: General skin exam: normal color Neuro: Speech: normal speech Motor exam (neuro): 5/5 motor strength present throughout Extrem: General: normal to inspection Psych: Other: awake and alert, autist Objective Data Vital Signs Vital Signs: Vital Signs - 24 hr 05/08/23 21:30 05/09/23 06:44 05/09/23 09:11 Temperature 97.7 F 97.9 F Pulse Rate 100 87 Respiratory Rate 14 16 16 Blood Pressure 142/84 H 141/82 H Pulse Oximetry 96 97 97 Oxygen Delivery Room Air 05/09/23 13:33 Temperature 97.4 F L Pulse Rate 94 Respiratory Rate 18 Blood Pressure 127/85 Pulse Oximetry 98 Oxygen Delivery Intake/Output Intake/Output: Intake & Output 05/06/23 05/07/23 05/08/23 05/09/23 23:59 23:59 23:59 23:59 Intake Total 2570 2230 3910 740 Output Total 3 Balance 2567 2230 3910 740 Meds/Results Medications: Active Medications Generic Name Dose Route Start Last Admin Trade Name Freq PRN Reason Stop Dose Admin Acetaminophen 650 mg 05/06/23 12:40 05/07/23 13:42 Acetaminophen 325 Mg Tablet PO 650 mg Q6H PRN Administration Mild Pain (1-3) or Fever Hydrocodone Bitart/Acetaminophen 1 tab 05/06/23 12:40 05/09/23 11:17 Hydrocodone/Acetaminophen (*Crx) 5-325 Mg Tablet PO 1 tab Q4H PRN Administration Pain Rated 4-6 Dextrose 12.5 gm 05/04/23 03:47 Dextrose 50% 25 Gm/50 Ml Syringe IV PUSH PRN PRN Hypoglycemia Protocol Fenofibrate 160 mg 05/05/23 09:00 05/09/23 09:11 Fenofibrate 160 Mg Tablet PO 160 mg DAILY JENNIFER Administration Glucagon 1 mg 05/04/23 03:47 Glucagon For Inj 1 Mg Vial IM PRN PRN Hypoglycemia Protocol Glucose 15 gm 05/04/23 03:47 Glucose Oral Gel 15 Gm Of Glucse In 37.5 Gm Tube PO PRN PRN Hypoglycemia Protocol Hydromorphone HCl 1 mg
[2023-05-09 15:01] VITALS: BP 131/71; PULSE 98; RESP 20; TEMP 36.2; O2SAT 100
[2023-05-09 16:54] LABS: Glucose Point of Care 136 mg/dl (65-105)
[2023-05-09] MEDS: LACTATED RINGERS 1,000 ML 75 ML IV CONT (17:01)
[2023-05-09 19:58] VITALS: BP 140/86; PULSE 96; RESP 20; TEMP 36.2; O2SAT 98
[2023-05-09 21:43] LABS: Glucose Point of Care 178 mg/dl (65-105)
[2023-05-09] MEDS: risperiDONE 0.5 MG TABLET PO (22:00)
[2023-05-10 00:59] VITALS: BP 141/82; PULSE 93; RESP 18; TEMP 36.8; O2SAT 96
[2023-05-10 03:17] VITALS: BP 141/73; PULSE 91; RESP 20; TEMP 36.1; O2SAT 100
[2023-05-10 05:30] LABS: Alanine Aminotransferase 169 U/L (6-50); Albumin Level 3.8 g/dL (3.5-5.1); Alkaline Phosphatase 145 U/L (38-126); Anion Gap 7 mmol/L (8-16); Aspartate Amino Transferase 135 U/L (17-59); Bilirubin,Total 0.9 mg/dL (0.2-1.3); Blood Urea Nitrogen 8 mg/dL (9-20); Calcium 9.2 mg/dL (8.4-10.2); Carbon Dioxide 23 mmol/L (22-30); Chloride 101 mmol/L (98-107); Estimated CRCL calculation 213 ml/min; Estimated Glomerular Filt Rate > 60; Glucose 156 mg/dL (65-110); Magnesium 1.7 mg/dL (1.6-2.3); Potassium 3.5 mmol/L (3.4-5.0); Sodium 131 mmol/L (137-145)
[2023-05-10 06:10] LABS: Basophils Absolute Auto 0.1 K/mm3 (0.0-0.1); Basophils Percent Auto 0.8 % (0.2-1.2); Eosinophils Absolute Auto 0.3 K/mm3 (0-0.3); Eosinophils Percent Auto 1.9 % (0-4.4); Hematocrit 38.2 % (42.0-52.0); Lymphocytes Absolute Auto 2.47 K/mm3 (0.9-3.2); Lymphocytes Percent Auto 17.8 % (18.3-44.2); Mean Corpuscular Hemoglobin 28.8 pg (26-34); Mean Corpuscular Volume 84.5 fl (80-100); Mean Platelet Volume 9.4 fl (7.4-10.4); Monocytes Absolute Auto 1.7 K/mm3 (0.1-0.6); Monocytes Percent Auto 12.5 % (2.6-8.5); Neutrophils Absolute Auto 8.6 K/mm3 (1.3-6.7); Platelet Count Result 403 k/mm3 (150-375); Red Blood Count 4.52 M/mm3 (4.6-6.20); Red Cell Distribution Width 13.1 % (11.5-14.5); White Blood Count 13.9 K/mm3 (4.5-10.0)
[2023-05-10] MEDS: LACTATED RINGERS 1,000 ML 75 ML IV CONT (06:44)
--- NOTE | 2023-05-10 07:42 | PM.DS ---
DS: Admitting Diagnosis Discharge Date SaturdayMay 10 Admitting Diagnosis Abdominal pain DS: Discharge Diagnosis Discharge Diagnosis (1) Acute pancreatitis: Qualifiers: Pancreatitis type: drug induced Code(s): K85.90 - Acute pancreatitis without necrosis or infection, unspecified Status: Acute Assessment and Plan: Pancreatitis most likely due to triglycerides being elevated over 2500. Lipase elevated to [address] abdomen pelvis revealing acute pancreatitis. Start on Fenofibrate for triglycerides 2500 IV fluids initiated. 05/06/23 Repeat triglycerides approximately 523. Lipase returned to normal. CT abdomen pelvis on 05/06/2023 reveals worsening acute pancreatitis. Patient developed fever and increased abdominal pain and was started on Zosyn. Concern for acute cholangitis due to fever, abdominal pain and elevated bilirubin. GI consulted. Recommending MRCP which shows acute interstitial pancreatitis, no choledocholithiasis. Tolerated Full liquid diet yesterday. Will advance to low fat diet for lunch. (2) Elevated lipase: Code(s): R74.8 - Abnormal levels of other serum enzymes Status: Acute Assessment and Plan: Secondary to acute pancreatitis. Continue pain control and IV hydration Tbili 1.0, AST 69->84, ALT 70->112, Alk phos 136 (3) Diabetes: Code(s): E11.9 - Type 2 diabetes mellitus without complications Status: Acute Assessment and Plan: Patient is hyperglycemic, not in DKA. Would continue IV hydration, hold ozempic, continue lantus and place on SSI Stopping Metformin while inpatient and not on a DM diet (4) Hypertriglyceridemia: Code(s): E78.1 - Pure hyperglyceridemia Status: Acute Assessment and Plan: On presentation patient's triglycerides were greater than 2500. He was placed on fenofibrate. Triglycerides have downtrended with repeat 523 Plan Continue IV hydration. If he tolerates a diet can d/c and transition to oral antibiotics. Labs reviewed, replace K+ with 40 meq IVP Continue IV pain medications, zofran Advance diet for lunch GI recommendations appreciated DS: Summary Hospital Course Hospital Course: Narrative: ? Patient is a 28-year-old male with history of hyperlipidemia and type 2 diabetes on Ozempic and faxiga, autism here with upper abdominal pain.? He notes that the pain began about 1 day ago and has progressively worsened.? ? Pain is diffuse throughout the abdomen but worse in the epigastrium and right upper quadrant.? ? He does note that when he ate some carrots earlier today it seemed to make the pain worse.? Denies prior history of similar in the past.? He notes he has had some associated nausea and some loose stools.? ? Denies fever and chills.? Denies flank pain, denies urinary symptoms.? He did have a prior appendectomy in the past. No cough, congestion,chest pain.Denied N/V or fever. 05/04: Patient lying in bed with mother at bedside.? Patient is adopted and family history is unknown.? explained to patient's mom that elevated triglycerides can sometimes be genetic.? Patient will likely need plasmapheresis or insulin drip to decrease the amount of triglycerides.? He continues to have abdominal pain near his umbilicus.? He has pain to palpation in the right upper quadrant.? He denies any nausea vomiting.? He did have breakfast this morning and states that it did not worsen his pain.? Discussed with the family that it would probably be best if he is NPO for now. 05/05: Patient continues to have abdominal pain although it is better than yesterday.? He feels up to trying a diet neck discussed with him that we can start with a clear liquid diet but if he does not do well we will discontinue this diet.? He denies any nausea.? He states that he has have a bowel movement 2 days and I started him on some MiraLax. 05/06/2023 patient developed fever up to 102.5 and severe abdominal p
[2023-05-10 08:24] LABS: Glucose Point of Care 162 mg/dl (65-105)
[2023-05-10] MEDS: FENOFIBRATE 160 MG TABLET PO (08:58)
[2023-05-10] MEDS: risperiDONE 1 MG TABLET PO (08:59)
[2023-05-10] MEDS: SERTRALINE HCL 50 MG TABLET PO (08:59)
[2023-05-10] MEDS: INSULIN GLARGINE (*BKC) 100 UNITS/ML 30 UNITS SUB-Q (09:00)
--- NOTE | 2023-05-10 09:52 | PCNWS ---
Weekly nutritional screen. Patient is tolerating current diet with adequate intake. No weight loss reported. No nutritional needs at this time.
[2023-05-10 11:51] LABS: Glucose Point of Care 174 mg/dl (65-105)
--- NOTE | 2023-05-10 13:20 | WPDGIPROGNO ---
Progress Note: A&P Assessment and Plan (1) Acute pancreatitis: Qualifiers: Pancreatitis type: drug induced Code(s): K85.90 - Acute pancreatitis without necrosis or infection, unspecified Status: Acute Assessment and Plan: this is from hypertriglyceridemia given new episode of pancreatitis probably will be forrest not to use ozempic anymore after he leaves the hospital tolerating low fat diet MRCP reviewed, pancreatitis with normal biliary system, no need of ercp he ca go home soon today and then follow-up in office 3-4 weeks (2) Hypertriglyceridemia: Code(s): E78.1 - Pure hyperglyceridemia Status: Acute Assessment and Plan: will need treatment and diet repeat labs as outpatient (3) Abdominal pain: Code(s): R10.9 - Unspecified abdominal pain Status: Acute Assessment and Plan: resolved (4) SIRS (systemic inflammatory response syndrome): Code(s): R65.10 - Systemic inflammatory response syndrome (SIRS) of non-infectious origin without acute organ dysfunction Status: Acute Assessment and Plan: fever few days ago, this could be also from pancreatitis and was empirically on abx clinically much better (5) Diabetes: Code(s): E11.9 - Type 2 diabetes mellitus without complications Status: Acute (6) Autism: Code(s): F84.0 - Autistic disorder Status: Acute Subjective Date/time seen: 05/10/23 13:20 Interval history: no more pain and tolerated diet he is feeling like going home mother at bedside Review of Systems Review of Systems: All systems reviewed & are unremarkable except as noted in HPI and below Exam Const: General: comfortable HENMT: Face/Nose/Sinus: Normal nares present Eyes: General: appearance normal, both eyes and all related structures Neck: Neck: supple Resp: Auscultation: clear to auscultation bilaterally Cardio: Rate: regular rate GI: GI Palp: Yes Soft to palpation, No Tenderness to palpation present (GI) and No Guarding due to palpation present (GI) Auscultation: normal bowel sounds Skin: General skin exam: normal color Neuro: Speech: normal speech Motor exam (neuro): 5/5 motor strength present throughout Extrem: General: normal to inspection Psych: Other: awake and alert, autist Objective Data Vital Signs Vital Signs: Vital Signs - 24 hr 05/09/23 13:33 05/09/23 15:01 05/09/23 19:58 Temperature 97.4 F L 97.2 F L 97.1 F L Pulse Rate 94 98 96 Respiratory Rate 18 20 20 Blood Pressure 127/85 131/71 140/86 Pulse Oximetry 98 100 98 05/10/23 00:59 05/10/23 03:17 Temperature 98.3 F 97.0 F L Pulse Rate 93 91 Respiratory Rate 18 20 Blood Pressure 141/82 H 141/73 H Pulse Oximetry 96 100 Intake/Output Intake/Output: Intake & Output 05/07/23 05/08/23 05/09/23 05/10/23 23:59 23:59 23:59 23:59 Intake Total 2230 3910 2310 1290 Balance 2230 3910 2310 1290 Meds/Results Medications: Active Medications Generic Name Dose Route Start Last Admin Trade Name Freq PRN Reason Stop Dose Admin Acetaminophen 650 mg 05/06/23 12:40 05/07/23 13:42 Acetaminophen 325 Mg Tablet PO 650 mg Q6H PRN Administration Mild Pain (1-3) or Fever Hydrocodone Bitart/Acetaminophen 1 tab 05/06/23 12:40 05/09/23 11:17 Hydrocodone/Acetaminophen (*Crx) 5-325 Mg Tablet PO 1 tab Q4H PRN Administration Pain Rated 4-6 Dextrose 12.5 gm 05/04/23 03:47 Dextrose 50% 25 Gm/50 Ml Syringe IV PUSH PRN PRN Hypoglycemia Protocol Fenofibrate 160 mg 05/05/23 09:00 05/10/23 08:58 Fenofibrate 160 Mg Tablet PO 160 mg DAILY JENNIFER Administration Glucagon 1 mg 05/04/23 03:47 Glucagon For Inj 1 Mg Vial IM PRN PRN Hypoglycemia Protocol Glucose 15 gm 05/04/23 03:47 Glucose Oral Gel 15 Gm Of Glucse In 37.5 Gm Tube PO PRN PRN Hypoglycemia Protocol Hydromorphone HCl 1 mg 05/04/23 00:04 05/08/23
== END 2023-05-10 15:18 | disposition home or self-care (01) | DRG 439 ==
LOC: ANHED 22:45 → ANH2MED 23:08
PROVIDERS: Internal Medicine Critical Care Medicine; Internal Medicine Nephrology; Student in an Organized Health Care Education/Training Program; Admitting Provider Student in an Organized Health Care Education/Training Program; Emergency Provider Emergency Medicine; PCP Family Medicine; Visit Provider Nurse Practitioner Acute Care
DX: K85.80 Other acute pancreatitis without necrosis or infection (principal); F84.0 Autistic disorder; R65.10 Systemic inflammatory response syndrome (SIRS) of non-infectious origin without acute organ dysfunction; J98.11 Atelectasis; E78.1 Pure hyperglyceridemia; E11.65 Type 2 diabetes mellitus with hyperglycemia; R74.8 Abnormal levels of other serum enzymes; E78.5 Hyperlipidemia, unspecified; D72.829 Elevated white blood cell count, unspecified
CPT/HCPCS: 36415; 71045; 71275; 72100; 74175; 74177; 74183; 76376; 76705; 80048; 80053; 80061; 81003; 82948; 83036; 83605; 83690; 83735; 84132; 84478; 85025; 86140; 87040; 93005; 96361; 96374; 96375; 96376; 99285; A9270; A9577; C9113; J1170; J1815; J1885; J2270; J2405; J2543; J3480; J7030; J7040; J7120; Q9967

== ENCOUNTER 2023-05-27 08:52 | Outpatient (CLI) | payer BC, SELFPAY ==
[2023-05-27 10:38] LABS: Triglycerides 173 mg/dL (<150)
== END 2023-05-27 08:53 | disposition home or self-care (01) ==
PROVIDERS: PCP Family Medicine; Visit Provider Nurse Practitioner Acute Care
DX: E78.5 Hyperlipidemia, unspecified (principal)
CPT/HCPCS: 36415; 84478

== ENCOUNTER 2024-10-02 18:42 | Emergency (ER) | payer BC, SELFPAY ==
[2024-10-02] VITALS (14 sets, daily range): BP systolic 105–123; BP diastolic 48–72; PULSE 107–120; RESP 17–33; TEMP 37.4–38; O2SAT 95–100
--- NOTE | ~2024-10-02 | CT_ITS ---
History: Altered mental status PROCEDURE: CT head without contrast. COMPARISON: None TECHNIQUE: Axial imaging of the head performed from the skull base to the vertex without IV contrast. Sagittal a nd coronal reformations obtained. DLP: 681 mGy-cm FINDINGS: The ventricles are normal in size, shape and position. 6 mm rounded focus of increased attenuation is identified within the right insula, just adjacent to t he posterior limb of the internal capsule. Trace surrounding vasogenic edema, possibly artifactual fo r which contrast enhanced MRI is suggested. Visualized paranasal sinuses are clear. The mastoid air cells are well aerated. No acute displaced fractures within the overlying cranium. Impression: No acute intracranial hemorrhage or suspicious mass effect. 6 mm rounded focus of increased attenuation is identified within the right insula, just adjacent to t he posterior limb of the internal capsule. Trace surrounding vasogenic edema, possibly artifactual fo r which contrast enhanced MRI is suggested. Reviewed, dictated and finalized at location A. [employer]ST[employer]ER Impression: No acute intracranial hemorrhage or suspicious mass effect. 6 mm rounded focus of increased attenuation is identified within the right insu la, just adjacent to the posterior limb of the internal capsule. Trace surround ing vasogenic edema, possibly artifactual for which contrast enhanced MRI is mccurdy ggested.
--- NOTE | ~2024-10-02 | XR_ITS ---
XR chest 2V Ordering provider: Jud Edmonds PA-C History: 29 years Male with . weakness, dyspnea . Comparison: May 10, 2023 FINDINGS: MEDIASTINUM: The cardiac silhouette is slightly enlarged. LUNGS: No infiltrates, effusions or pneumothorax. OTHER: No free air under the diaphragm. IMPRESSION: No acute cardiopulmonary pathology. Reviewed, dictated and finalized at location A. [employer] CONSULTANT
--- NOTE | 2024-10-02 18:52 | ECG_ITS ---
Test Date: 2024-10-02 19:09:18 Measurements Intervals [place] Rate: 108 P: 31 [place]: 112 QRS: 31 QRSD: 95 T: 82 QT: 347 QTc: 467 Interpretive Statements SINUS TACHYCARDIA WITH SHORT [place] INTERVAL NONSPECIFIC T-WAVE ABNORMALITY BASELINE ARTIFACT PRESENT No previous ECG available for comparison Electronically Signed On 10-06-2024 17:48:44 RESIDENTIAL DIRECT SUPPORT PROFESSIONAL by Jaelyn Will M.D.
--- NOTE | 2024-10-02 18:59 | ED.SOB ---
HPI - SOB/Dyspnea General Chief Complaint: Shortness of Breath/Dyspnea <Jud Edmodns PA-C - Last Filed: 10/03/24 01:00> Stated Complaint: fatigue, sob <LONG Gaston Last Filed: 10/03/24 01:00> Time Seen by Provider: 10/02/24 18:51 <LONG Gaston Last Filed: 10/03/24 01:00> Source: patient and family <LONG Gaston Last Filed: 10/03/24 01:00> Mode of arrival: ambulatory <LONG Gaston Last Filed: 10/03/24 01:00> Limitations: other (poor historian) <LONG Gaston Last Filed: 10/03/24 01:00> History of Present Illness HPI Narrative: This is a 29 year old male that presents to the ER for generalized weakness. Ongoing over the last several weeks. Reports feeling short of breath. He has history of DM. Does not check his sugars often. Reports he has recently been struggling with a runny nose. Denies fevers. <LONG Gaston Last Filed: 10/03/24 01:00> Related Data Home Medications: Home Medications ?Medication ?Instructions ?Recorded ?Confirmed ?Last Taken ?Type atorvastatin 40 mg tablet 40 mg PO DAILY 09/02/22 02/14/24 Unknown History dapagliflozin propanediol 10 mg 10 mg PO DAILY 09/02/22 02/14/24 Unknown History tablet (Farxiga) insulin glargine-yfgn 100 unit/mL 26 unit subcut DAILY 09/02/22 02/14/24 Unknown History (3 mL) subcutaneous pen (Semglee (insulin glargine-yfgn) Pen) metformin 1,000 mg tablet 1,000 mg PO USEASDIRECTD 09/02/22 02/14/24 Unknown History <LONG Gaston Last Filed: 10/03/24 01:00> Allergies/Adverse Reactions: Allergies Allergy/AdvReac Type Severity Reaction Status Date / Time No Known Allergies Allergy Verified 02/14/24 08:48 <LONG Gaston Last Filed: 10/03/24 01:00> Review of Systems Review of Systems: CONSTITUTIONAL: Denies fever ENT: Reports rhinorrhea CARDIOVASCULAR: Denies chest pain, or edema. RESPIRATORY: Reports dyspnea. GASTROINTESTINAL: Reports nausea, vomiting NEUROLOGIC: Reports generalized weakness. <LONG Gaston Last Filed: 10/03/24 01:00> All systems reviewed & are unremarkable except as noted in HPI and below <Jud Edmonds PA-C - Last Filed: 10/03/24 01:00> [facility] Past Medical History Medical History: Medical History Autism Diabetes Hyperlipidemia SIRS (systemic inflammatory response syndrome) <LONG Gaston Last Filed: 10/03/24 01:00> Surgical History Surgical History: Surgical History No pertinent past surgical history <LONG Gaston Last Filed: 10/03/24 01:00> Family History Family History: Family History Mother Family history non-contributory <LONG Gaston Last Filed: 10/03/24 01:00> Social History Social History: Social History Smoking status: Never smoker Tobacco type: cigars Additional smoking assessment comments: only smokes cigars on special occasions Alcohol intake: never Substance use: never Lack of Transportation: No Lack of Food: Never True Current Housing: I Have Housing Concerned About Future Housing: No Difficulty Paying Gas/Electric Bills: No Difficulty Paying for Meds: No Currently Unemployed: No Education: High School Diploma/GED Difficulty w/ Childcare or Family Care: No Living arrangements: with family Gender identity (if verbalized by the patient): Male Spiritual care concerns: No <LONG Gaston Last Filed: 10/03/24 01:00> Exam Narrative: GENERAL: Ill-appearing, pale, and in no acute distress. HEAD: Normocephalic, atraumatic. EYES: PERRLA and EOMI. ENT: Nares clear, no rhinorrhea or epistaxis. Mucous membranes dry. Oropharynx without tonsillar hypertrophy exudate or other lesions. Bilateral TMs pearly marcelo non-bulging NECK: Supple. No adenopathy or masses. CHEST: Clear to auscultation. No respiratory distress. No wheezes rales or rhonchi HEART: Regular rate and rhythm. No murmur heard. Normal peripheral pulses. ABDOMEN: Soft, nontender, nondistended, normal active bowel sounds. EXTREMITIES: Normal range of motion. No edema. SKIN: Warm, dry, no rash. NEURO: No focal deficits. Alert and oriented x3. PSYCH: Normal mood and affect <Jud Edmonds PA-C - Last Filed: 10/03/24 01:00> Course Course Emergency Course: Patient and family updated on his workup and need for transfer for higher level of care <Jud Edmonds PA-C - Last Filed: 10/03/24 01:00> HARDBOARD SUPERVISOR/PA Physician Supervision I agree with midlevel documentation; I performed my own independent evaluation and examination as well as medical decision making component of this encounter. I had independent [id number] time with the patient and family members. patient presents with generalized fatigue and malaise as well as weakness over last several weeks. Found to be have significant derangements including leukocytosis of 280,000, anemia and thrombocytopenia as well. Patient is adopted from childhood and his family members were present at bedside do not have any childhood history or other known diseases such as leukemia or childhood cancers. He did have an episode of pancreatitis secondary to Ozempic recently but no other recent concerns. Patient is responding to IV antibiotic therapy and transfusions of platelets and blood cells here. [facility] was contacted and Hematology was spoken to. Patient will be transferred to the ICU for potential interventions such as leukophoresis and continued care at the hospital. Family members were made aware of this and agreeable to transfer. Ambulance CT approximately midnight. Patient is hemodynamically stable and states he feels improved after interventions here. Please refer to remaining dictation by midlevel provider for continued documentation of care provided. <Yunior Landa MD - Last Filed: 10/02/24 23:21> Consultations Consultation #1: Spoke with Hematology, Dr. Hyatt at [place]. Recommends to g dose of hydroxyurea. 100 mg of allopurinol. Patient to be started on broad-spectrum antibiotics with cefepime and vancomycin. Recommends only 1 unit of packed RBCs and then fluid resuscitation. Patient will be admitted to the ICU. Dr. Joya is the accepting doctor <Jud Edmonds PA-C - Last Filed: 10/03/24 01:00> Date: 10/02/24 <LONG Gaston Last Filed: 10/03/24 01:00> Vital Signs Vital signs: Vital Signs Pulse Oximetry 100 10/02/24 18:56 Oxygen Delivery Room Air 10/02/24 18:56 Temperature 99.9 F H 10/03/24 00:18 Pulse Rate 117 H 10/02/24 23:36 Respiratory Rate 24 H 10/02/24 23:36 Blood Pressure 120/61 10/02/24 23:36 Pulse Oximetry 97 10/02/24 23:36 Oxygen Delivery Room Air 10/02/24 18:56 <Jud Edmonds PA-C - Last Filed: 10/03/24 01:00> Vital Signs Pulse Oximetry 100 10/02/24 18:56 Oxygen Delivery Room Air 10/02/24 18:56 Temperature 99.9 F H 10/03/24 00:18 Pulse Rate 117 H 10/02/24 23:36 Respiratory Rate 24 H 10/02/24 23:36 Blood Pressure 120/61 10/02/24 23:36 Pulse Oximetry 97 10/02/24 23:36 Oxygen Delivery Room Air 10/02/24 18:56 <Yunior Landa MD - Last Filed: 10/02/24 23:21> MDM - SOB/Dyspnea MDM Narrative Medical decision making narrative: Patient presents to the emergency department for worsening generalized weakness, shortness of breath. patient ill-appearing, pale. mildly tachycardic in the 110s to 120s. Oxygen saturation is normal on room air. Lungs are clear on exam. He is afebrile. Blood pressure stable. CBC with white blood cell count of 280k. Hemoglobin of 4.3, hematocrit of 13. Platelets of 19. Metabolic panel with evidence of acute kidney injury. Urine without evidence of infection. Influenza, RSV and COVID screens are negative. Chest x-ray without acute findings. CT brain is without acute intracranial hemorrhage. shows a 6 mm rounded focus of increased attenuation within the right insula, just adjacent to the posterior limb of the internal capsule. Trace surrounding vasogenic edema, possibly artifactual for which contrast enhanced MRI is suggested. Patient and family updated on his workup and need for transfer for higher level of care. Spoke with Hematology, Dr. Hyatt at [place]. Recommends to g dose of hydroxyurea. 100 mg of allopurinol. Patient to be started on broad-spectrum antibiotics with cefepime and vancomycin. Recommends only 1 unit of packed RBCs and then fluid resuscitation. Patient will be admitted to the ICU. Dr. Joya is the accepting doctor. We were unable to obtain ambulance transfer in a timely manor. Due to seriousness of patient's illness and importance of prompt management by specialist patient was transported via helicopter at recommendation of receiving facility <Jud Edmonds PA-C - Last Filed: 10/03/24 01:00> Patient presents to the emergency department for worsening generalized weakness, shortness of breath. patient ill-appearing, pale. mildly tachycardic in the 110s to 120s. Oxygen saturation is normal on room air. Lungs are clear on exam. He is afebrile. Blood pressure stable. CBC with white blood cell count of 280k. Hemoglobin of 4.3, hematocrit of 13. Platelets of 19. Metabolic panel with evidence of acute kidney injury. Urine without evidence of infection. Influenza, RSV and COVID screens are negative. Chest x-ray without acute findings. CT brain is without acute intracranial hemorrhage. shows a 6 mm rounded focus of increased attenuation within the right insula, just adjacent to the posterior limb of the internal capsule. Trace surrounding vasogenic edema, possibly artifactual for which contrast enhanced MRI is suggested. Patient and family updated on his workup and need for transfer for higher level of care. Spoke with Hematology, Dr. Hyatt at [place]. Recommends to g dose of hydroxyurea. 100 mg of allopurinol. Patient to be started on broad-spectrum antibiotics with cefepime and vancomycin. Recommends only 1 unit of packed RBCs and then fluid resuscitation. Patient will be admitted to the ICU. Dr. Joya is the accepting doctor <Yunior Landa MD - Last Filed: 10/02/24 23:21> Differential Diagnosis Differential diagnosis: Likely community acquired pneumonia, pulmonary embolism and other (DKA, anemia, leukemia, infection, dehydration, covid, influenza) <Jud Edmonds PA-C - Last Filed: 10/03/24 01:00> Lab Data Attestation: I reviewed the patient's lab results. <Jud Edmonds PA-C - Last Filed: 10/03/24 01:00> Result diagrams: 10/02/24 18:54 10/02/24 18:54 <Jud Edmonds PA-C - Last Filed: 10/03/24 01:00> Labs: Lab Results 10/02/24 10/02/24 10/02/24 Range/Units 18:54 19:01 19:19 WBC 280.4 H* (4.5-10.0) K/mm3 RBC 1.18 L (4.6-6.20) M/mm3 Hgb 4.3 L* D (14.0-18.0) g/dL Hct 13.0 L* (42.0-52.0) % MCV 110.2 H (80-100) fl MCH 36.4 H (26-34) pg MCHC 33.1 (32-36) g/dl RDW 19.8 H (11.5-14.5) % Plt Count 19 L* D (150-375) k/mm3 MPV 10.1 (7.4-10.4) fl Immature Gran % (Auto) Not Reportable Neut % (Auto) Not Reportable Lymph % (Auto) Not Reportable Sutter % (Auto) Not Reportable Eos % (Auto) Not Reportable Baso % (Auto) Not Reportable Lymph # (Auto) Not Reportable Sutter # (Auto) Not Reportable Eos # (Auto) Not Reportable Baso # (Auto) Not Reportable Abs Immat Gran (auto) Not Reportable Absolute Neuts (auto) Not Reportable Absolute Nucleated RBC Not Reportable Total Counted 200 Neutrophils % (Manual) 10 L (46-73) % Band Neutrophils % 0 (0-6) % Lymphocytes % (Manual) 10 L (18-44) % Monocytes % (Manual) 22 H (3-9) % Eosinophils % (Manual) 2 (0-4) % Nucleated RBC % Not Reportable Abs Neuts (Manual) 28.04 H (1.3-6.7) K/mm3 Abs Lymphs (Manual) 28.04 H (1.1-4.5) K/mm3 Abs Monocytes (Manual) 61.68 H (0.1-0.90) K/mm3 Absolute Eos (Manual) 5.60 H (0.02-0.50) K/mm3 Other Cell Type 56 Platelet Estimate Decreased (Adequate) % Immature Plt Fraction 4.7 (0.9-11.2) % Schistocytes None seen PT 18.6 H (11.1-14.7) Seconds INR 1.5 APTT 34.5 (22.3-36.8) Seconds Fibrinogen 462 (215-510) mg/dl D-Dimer < 0.27 (<0.48) ug/mL Sodium 136 L (137-145) mmol/L Potassium 3.9 (3.4-5.0) mmol/L Chloride 104 (98-107) mmol/L Carbon Dioxide 23 (22-30) mmol/L Anion Gap 9 (4-12) mmol/L BUN 20 D (9-20) mg/dL Creatinine 1.20 (0.7-1.3) mg/dL Estim Creat Clear Calc 95 ml/min Estimated GFR > 60 (59 - ) Glucose 175 H (65-110) mg/dL POC Capillary Glucose 187 H (65-105) mg/dl Lactic Acid 2.0 (0.7-2.0) mmol/L Uric Acid 8.3 (3.5-8.5) mg/dL Calcium 9.3 (8.4-10.2) mg/dL Phosphorus 4.6 H (2.5-4.5) mg/dL Magnesium 2.3 (1.6-2.3) mg/dL Total Bilirubin 0.8 (0.2-1.3) mg/dL AST 48 (17-59) U/L ALT 45 (6-50) U/L Alkaline Phosphatase 99 (38-126) U/L Lactate Dehydrogenase > 1000 H (120-246) U/L Total Creatine Kinase 82 (55-170) U/L C-Reactive Protein 1.7 H (<1.0) mg/dL NT-Pro-B Natriuret Pep 658 H (19.9-100) pg/mL Total Protein 7.0 (6.3-8.2) g/dL Albumin 4.5 (3.5-5.1) g/dL Beta-Hydroxybutyrate/Acetoacetate 0.46 H (0.02-0.27) mmol/L Urine Color (Yellow) Urine Appearance (Clear) Urine pH (5.0-9.0) Ur Specific [place] (1.001-1.035) Urine Protein (Negative) mg/dL Urine Glucose (UA) (Negative) mg/dL Urine Ketones (Negative) mg/dL Ur Blood (Man) (Negative) Urine Nitrate (Negative) Urine Bilirubin (Negative) Urine Urobilinogen (<2.0) mg/dL Leukocyte Esterase Rfl (Negative) RAIMUNDO/UL Urine RBC (0-2) /hpf Urine WBC (0-3) /hpf Ur Squamous Epith Cells (Few) /hpf Urine Bacteria /hpf Urine Casts Nasal MRSA (PCR) (NOT DETECTE) Influenza A (RT-PCR) Negative (Negative) Influenza B (RT-PCR) Negative (Negative) RSV (RT-PCR) Negative (Negative) SARS-CoV-2 RNA (RT-PCR) Negative (Negative) Blood Type B Positive Antibody Screen Negative Crossmatch See Detail 10/02/24 10/02/24 Range/Units 19:29 22:12 WBC (4.5-10.0) K/mm3 RBC (4.6-6.20) M/mm3 Hgb (14.0-18.0) g/dL Hct (42.0-52.0) % MCV (80-100) fl MCH (26-34) pg MCHC (32-36) g/dl RDW (11.5-14.5) % Plt Count (150-375) k/mm3 MPV (7.4-10.4) fl Immature Gran % (Auto) Neut % (Auto) Lymph % (Auto) Sutter % (Auto) Eos % (Auto) Baso % (Auto) Lymph # (Auto) Sutter # (Auto) Eos # (Auto) Baso # (Auto) Abs Immat Gran (auto) Absolute Neuts (auto) Absolute Nucleated RBC Total Counted Neutrophils % (Manual) (46-73) % Band Neutrophils % (0-6) % Lymphocytes % (Manual) (18-44) % Monocytes % (Manual) (3-9) % Eosinophils % (Manual) (0-4) % Nucleated RBC % Abs Neuts (Manual) (1.3-6.7) K/mm3 Abs Lymphs (Manual) (1.1-4.5) K/mm3 Abs Monocytes (Manual) (0.1-0.90) K/mm3 Absolute Eos (Manual) (0.02-0.50) K/mm3 Other Cell Type Platelet Estimate (Adequate) % Immature Plt Fraction (0.9-11.2) % Schistocytes PT (11.1-14.7) Seconds INR APTT (22.3-36.8) Seconds Fibrinogen (215-510) mg/dl D-Dimer (<0.48) ug/mL Sodium (137-145) mmol/L Potassium (3.4-5.0) mmol/L Chloride (98-107) mmol/L Carbon Dioxide (22-30) mmol/L Anion Gap (4-12) mmol/L BUN (9-20) mg/dL Creatinine (0.7-1.3) mg/dL Estim Creat Clear Calc ml/min Estimated GFR (59 - ) Glucose (65-110) mg/dL POC Capillary Glucose (65-105) mg/dl Lactic Acid (0.7-2.0) mmol/L Uric Acid (3.5-8.5) mg/dL Calcium (8.4-10.2) mg/dL Phosphorus (2.5-4.5) mg/dL Magnesium (1.6-2.3) mg/dL Total Bilirubin (0.2-1.3) mg/dL AST (17-59) U/L ALT (6-50) U/L Alkaline Phosphatase (38-126) U/L Lactate Dehydrogenase (120-246) U/L Total Creatine Kinase (55-170) U/L C-Reactive Protein (<1.0) mg/dL NT-Pro-B Natriuret Pep (19.9-100) pg/mL Total Protein (6.3-8.2) g/dL Albumin (3.5-5.1) g/dL Beta-Hydroxybutyrate/Acetoacetate (0.02-0.27) mmol/L Urine Color Yellow (Yellow) Urine Appearance Clear (Clear) Urine pH 5.5 (5.0-9.0) Ur Specific [place] 1.028 (1.001-1.035) Urine Protein 1+ H (Negative) mg/dL Urine Glucose (UA) 3+ H (Negative) mg/dL Urine Ketones Trace H (Negative) mg/dL Ur Blood (Man) Negative (Negative) Urine Nitrate Negative (Negative) Urine Bilirubin Negative (Negative) Urine Urobilinogen 1.0 (<2.0) mg/dL Leukocyte Esterase Rfl Negative (Negative) RAIMUNDO/UL Urine RBC 0-2 (0-2) /hpf Urine WBC 0-5 (0-3) /hpf Ur Squamous Epith Cells Few (Few) /hpf Urine Bacteria None seen /hpf Urine Casts 3-5 Nasal MRSA (PCR) Not detected (NOT DETECTE) Influenza A (RT-PCR) (Negative) Influenza B (RT-PCR) (Negative) RSV (RT-PCR) (Negative) SARS-CoV-2 RNA (RT-PCR) (Negative) Blood Type Antibody Screen Crossmatch <Jud Edmonds PA-C - Last Filed: 10/03/24 01:00> Lab Results 10/02/24 10/02/24 10/02/24 Range/Units 18:54 19:01 19:19 WBC 280.4 H* (4.5-10.0) K/mm3 RBC 1.18 L (4.6-6.20) M/mm3 Hgb 4.3 L* D (14.0-18.0) g/dL Hct 13.0 L* (42.0-52.0) % MCV 110.2 H (80-100) fl MCH 36.4 H (26-34) pg MCHC 33.1 (32-36) g/dl RDW 19.8 H (11.5-14.5) % Plt Count 19 L* D (150-375) k/mm3 MPV 10.1 (7.4-10.4) fl Immature Gran % (Auto) Not Reportable Neut % (Auto) Not Reportable Lymph % (Auto) Not Reportable Sutter % (Auto) Not Reportable Eos % (Auto) Not Reportable Baso % (Auto) Not Reportable Lymph # (Auto) Not Reportable Sutter # (Auto) Not Reportable Eos # (Auto) Not Reportable Baso # (Auto) Not Reportable Abs Immat Gran (auto) Not Reportable Absolute Neuts (auto) Not Reportable Absolute Nucleated RBC Not Reportable Total Counted 200 Neutrophils % (Manual) 10 L (46-73) % Band Neutrophils % 0 (0-6) % Lymphocytes % (Manual) 10 L (18-44) % Monocytes % (Manual) 22 H (3-9) % Eosinophils % (Manual) 2 (0-4) % Nucleated RBC % Not Reportable Abs Neuts (Manual) 28.04 H (1.3-6.7) K/mm3 Abs Lymphs (Manual) 28.04 H (1.1-4.5) K/mm3 Abs Monocytes (Manual) 61.68 H (0.1-0.90) K/mm3 Absolute Eos (Manual) 5.60 H (0.02-0.50) K/mm3 Other Cell Type 56 Platelet Estimate Decreased (Adequate) % Immature Plt Fraction 4.7 (0.9-11.2) % Schistocytes None seen PT 18.6 H (11.1-14.7) Seconds INR 1.5 APTT 34.5 (22.3-36.8) Seconds Fibrinogen 462 (215-510) mg/dl D-Dimer < 0.27 (<0.48) ug/mL Sodium 136 L (137-145) mmol/L Potassium 3.9 (3.4-5.0) mmol/L Chloride 104 (98-107) mmol/L Carbon Dioxide 23 (22-30) mmol/L Anion Gap 9 (4-12) mmol/L BUN 20 D (9-20) mg/dL Creatinine 1.20 (0.7-1.3) mg/dL Estim Creat Clear Calc 95 ml/min Estimated GFR > 60 (59 - ) Glucose 175 H (65-110) mg/dL POC Capillary Glucose 187 H (65-105) mg/dl Lactic Acid 2.0 (0.7-2.0) mmol/L Uric Acid 8.3 (3.5-8.5) mg/dL Calcium 9.3 (8.4-10.2) mg/dL Phosphorus 4.6 H (2.5-4.5) mg/dL Magnesium 2.3 (1.6-2.3) mg/dL Total Bilirubin 0.8 (0.2-1.3) mg/dL AST 48 (17-59) U/L ALT 45 (6-50) U/L Alkaline Phosphatase 99 (38-126) U/L Lactate Dehydrogenase > 1000 H (120-246) U/L Total Creatine Kinase 82 (55-170) U/L C-Reactive Protein 1.7 H (<1.0) mg/dL NT-Pro-B Natriuret Pep 658 H (19.9-100) pg/mL Total Protein 7.0 (6.3-8.2) g/dL Albumin 4.5 (3.5-5.1) g/dL Beta-Hydroxybutyrate/Acetoacetate 0.46 H (0.02-0.27) mmol/L Urine Color (Yellow) Urine Appearance (Clear) Urine pH (5.0-9.0) Ur Specific [place] (1.001-1.035) Urine Protein (Negative) mg/dL Urine Glucose (UA) (Negative) mg/dL Urine Ketones (Negative) mg/dL Ur Blood (Man) (Negative) Urine Nitrate (Negative) Urine Bilirubin (Negative) Urine Urobilinogen (<2.0) mg/dL Leukocyte Esterase Rfl (Negative) RAIMUNDO/UL Urine RBC (0-2) /hpf Urine WBC (0-3) /hpf Ur Squamous Epith Cells (Few) /hpf Urine Bacteria /hpf Urine Casts Nasal MRSA (PCR) (NOT DETECTE) Influenza A (RT-PCR) Negative (Negative) Influenza B (RT-PCR) Negative (Negative) RSV (RT-PCR) Negative (Negative) SARS-CoV-2 RNA (RT-PCR) Negative (Negative) Blood Type B Positive Antibody Screen Negative Crossmatch See Detail 10/02/24 10/02/24 Range/Units 19:29 22:12 WBC (4.5-10.0) K/mm3 RBC (4.6-6.20) M/mm3 Hgb (14.0-18.0) g/dL Hct (42.0-52.0) % MCV (80-100) fl MCH (26-34) pg MCHC (32-36) g/dl RDW (11.5-14.5) % Plt Count (150-375) k/mm3 MPV (7.4-10.4) fl Immature Gran % (Auto) Neut % (Auto) Lymph % (Auto) Sutter % (Auto) Eos % (Auto) Baso % (Auto) Lymph # (Auto) Sutter # (Auto) Eos # (Auto) Baso # (Auto) Abs Immat Gran (auto) Absolute Neuts (auto) Absolute Nucleated RBC Total Counted Neutrophils % (Manual) (46-73) % Band Neutrophils % (0-6) % Lymphocytes % (Manual) (18-44) % Monocytes % (Manual) (3-9) % Eosinophils % (Manual) (0-4) % Nucleated RBC % Abs Neuts (Manual) (1.3-6.7) K/mm3 Abs Lymphs (Manual) (1.1-4.5) K/mm3 Abs Monocytes (Manual) (0.1-0.90) K/mm3 Absolute Eos (Manual) (0.02-0.50) K/mm3 Other Cell Type Platelet Estimate (Adequate) % Immature Plt Fraction (0.9-11.2) % Schistocytes PT (11.1-14.7) Seconds INR APTT (22.3-36.8) Seconds Fibrinogen (215-510) mg/dl D-Dimer (<0.48) ug/mL Sodium (137-145) mmol/L Potassium (3.4-5.0) mmol/L Chloride (98-107) mmol/L Carbon Dioxide (22-30) mmol/L Anion Gap (4-12) mmol/L BUN (9-20) mg/dL Creatinine (0.7-1.3) mg/dL Estim Creat Clear Calc ml/min Estimated GFR (59 - ) Glucose (65-110) mg/dL POC Capillary Glucose (65-105) mg/dl Lactic Acid (0.7-2.0) mmol/L Uric Acid (3.5-8.5) mg/dL Calcium (8.4-10.2) mg/dL Phosphorus (2.5-4.5) mg/dL Magnesium (1.6-2.3) mg/dL Total Bilirubin (0.2-1.3) mg/dL AST (17-59) U/L ALT (6-50) U/L Alkaline Phosphatase (38-126) U/L Lactate Dehydrogenase (120-246) U/L Total Creatine Kinase (55-170) U/L C-Reactive Protein (<1.0) mg/dL NT-Pro-B Natriuret Pep (19.9-100) pg/mL Total Protein (6.3-8.2) g/dL Albumin (3.5-5.1) g/dL Beta-Hydroxybutyrate/Acetoacetate (0.02-0.27) mmol/L Urine Color Yellow (Yellow) Urine Appearance Clear (Clear) Urine pH 5.5 (5.0-9.0) Ur Specific [place] 1.028 (1.001-1.035) Urine Protein 1+ H (Negative) mg/dL Urine Glucose (UA) 3+ H (Negative) mg/dL Urine Ketones Trace H (Negative) mg/dL Ur Blood (Man) Negative (Negative) Urine Nitrate Negative (Negative) Urine Bilirubin Negative (Negative) Urine Urobilinogen 1.0 (<2.0) mg/dL Leukocyte Esterase Rfl Negative (Negative) RAIMUNDO/UL Urine RBC 0-2 (0-2) /hpf Urine WBC 0-5 (0-3) /hpf Ur Squamous Epith Cells Few (Few) /hpf Urine Bacteria None seen /hpf Urine Casts 3-5 Nasal MRSA (PCR) Not detected (NOT DETECTE) Influenza A (RT-PCR) (Negative) Influenza B (RT-PCR) (Negative) RSV (RT-PCR) (Negative) SARS-CoV-2 RNA (RT-PCR) (Negative) Blood Type Antibody Screen Crossmatch <Yunior Landa MD - Last Filed: 10/02/24 23:21> Imaging Data Radiologist's impression: ITS Impressions Chest X-Ray 10/02/24 19:38 IMPRESSION: No acute cardiopulmonary pathology. Head CT 10/02/24 20:09 Impression: No acute intracranial hemorrhage or suspicious mass effect. 6 mm rounded focus of increased attenuation is identified within the right insula, just adjacent to the posterior limb of the internal capsule. Trace surrounding vasogenic edema, possibly artifactual for which contrast enhanced MRI is suggested. ADDENDUM: 10/02/242030 Findings discussed with RHONA Pradhan at 8:20 PM on 10/02/2024 <Jud Edmonds PA-C - Last Filed: 10/03/24 01:00> Critical Care Time Critical Care Time Critical Care Time: Yes <Jud Edmonds PA-C - Last Filed: 10/03/24 01:00> Total Critical Care Time: 35 <Jud Edmonds PA-C - Last Filed: 10/03/24 01:00> 76 <Yunior Landa MD - Last Filed: 10/02/24 23:21> Discharge Plan Discharge Clinical Impression: Brain mass, Thrombocytopenia Anemia Qualifiers: Anemia type: unspecified type Qualified Code(s): D64.9 - Anemia, unspecified Leukocytosis Qualifiers: Leukocytosis type: unspecified Qualified Code(s): D72.829 - Elevated white blood cell count, unspecified <Jud Edmonds PA-C - Last Filed: 10/03/24 01:00> Patient Disposition: Acute Care Hospital <Jud Edmonds PA-C - Last Filed: 10/03/24 01:00> Condition: Serious <Jud Edmonds PA-C - Last Filed: 10/03/24 01:00> Patient Language: Romanian <Jud Edmonds PA-C - Last Filed: 10/03/24 01:00> Prescriptions: No Action atorvastatin 40 mg tablet 40 mg PO DAILY metformin 1,000 mg tablet 1,000 mg PO USEASDIRECTD Farxiga 10 mg tablet 10 mg PO DAILY insulin glargine-yfgn [Semglee(insulin glarg-yfgn)Pen] 100 unit/mL (3 mL) insulin pen 26 unit SUBCUT DAILY fenofibrate 160 mg Tablet 160 mg PO DAILY Qty: 30 0RF risperidone 0.5 mg tablet 0.5 mg PO HS Qty: 30 0RF risperidone 1 mg tablet 1 mg PO BID Qty: 60 0RF sertraline 50 mg tablet 50 mg PO DAILY Qty: 30 0RF divalproex 250 mg tablet extended release 24 hr 250 mg PO .COMPLEX Qty: 270 0RF Rx Instructions: 250 mg orally 1 in AM and 2 HS; lisinopril 10 mg tablet 10 mg PO DAILY Qty: 60 3RF <Jud Edmonds PA-C - Last Filed: 10/03/24 01:00> Follow-up/Referrals: Xiomara Andrews MD [Primary Care Provider] - <Jud Edmonds PA-C - Last Filed: 10/03/24 01:00>
[2024-10-02 19:03] LABS: Glucose Point of Care 187 mg/dl (65-105)
[2024-10-02 19:07] LABS: Immature Platelet Fraction Pct 4.7 % (0.9-11.2); Mean Corpuscular HGB Conc 33.1 g/dl (32-36); Mean Corpuscular Hemoglobin 36.4 pg (26-34); Mean Corpuscular Volume 110.2 fl (80-100); Mean Platelet Volume 10.1 fl (7.4-10.4); Red Blood Count 1.18 M/mm3 (4.6-6.20); Red Cell Distribution Width 19.8 % (11.5-14.5)
[2024-10-02] MEDS: SODIUM CHLORIDE 0.9% IV 1,000 ML 999 ML IV CONT (19:11)
[2024-10-02 19:35] LABS: D Dimer < 0.27 ug/mL (<0.48)
[2024-10-02 19:36] LABS: Alanine Aminotransferase 45 U/L (6-50); Albumin Level 4.5 g/dL (3.5-5.1); Alkaline Phosphatase 99 U/L (38-126); Anion Gap 9 mmol/L (4-12); Aspartate Amino Transferase 48 U/L (17-59); Bilirubin,Total 0.8 mg/dL (0.2-1.3); Blood Urea Nitrogen 20 mg/dL (9-20); CRP 1.7 mg/dL (<1.0); Calcium 9.3 mg/dL (8.4-10.2); Carbon Dioxide 23 mmol/L (22-30); Chloride 104 mmol/L (98-107); Estimated CRCL calculation 95 ml/min; Estimated Glomerular Filt Rate > 60; Glucose 175 mg/dL (65-110); Magnesium 2.3 mg/dL (1.6-2.3); Phosphorus 4.6 mg/dL (2.5-4.5); Potassium 3.9 mmol/L (3.4-5.0); Sodium 136 mmol/L (137-145)
[2024-10-02 19:44] LABS: Hemoglobin 4.3 g/dL (14.0-18.0); White Blood Count 280.4 K/mm3 (4.5-10.0)
[2024-10-02 19:45] LABS: Platelet Count Result 19 k/mm3 (150-375)
[2024-10-02 19:45] LABS: Add Urine Microscopic? YES; Appearance Urine Clear (Clear); Bacteria Urine None Seen /hpf; Bilirubin Urine Negative (Negative); Blood Urine Negative (Negative); Color Urine Yellow (Yellow); Glucose Urine UA 3+ mg/dL (Negative); Ketones Urine Trace mg/dL (Negative); Leukocyte Esterase Ur Negative LEU/UL (Negative); Nitrate Urine Negative (Negative); Protein Urine 1+ mg/dL (Negative); RBC Urine 0-2 /hpf (0-2); Specific Grav Ur 1.028 (1.001-1.035); Squamous Epithelial Cell Urine Few /hpf (Few); WBC Urine 0-5 /hpf (0-3); pH Urine 5.5 (5.0-9.0)
[2024-10-02 20:02] LABS: Beta-Hydroxybutyrate/Acetoacetate 0.46 mmol/L (0.02-0.27)
[2024-10-02 20:09] LABS: Total Cells Counted 200
[2024-10-02 20:12] LABS: Influenza A QL RT-PCR Negative (Negative); Influenza B QL RT-PCR Negative (Negative); RSV RNA, RT-PCR Negative (Negative); SARS-CoV-2 RNA PCR Negative (Negative)
[2024-10-02 20:13] LABS: Lymphocytes Absolute Manual 28.04 K/mm3 (1.1-4.5); Lymphocytes Percent Manual 10 % (18-44); Monocytes Absolute Manual 61.68 K/mm3 (0.1-0.90); Monocytes Percent Manual 22 % (3-9); Neutrophils Percent Manual 10 % (46-73)
[2024-10-02 20:15] LABS: Platelet Estimate Decreased (Adequate)
[2024-10-02 20:17] LABS: Eosinophils Percent Manual 2 % (0-4); Other Cell Type 56
[2024-10-02 20:18] LABS: Band Neutrophils Percent 0 % (0-6); Neutrophils Absolute Manual 28.04 K/mm3 (1.3-6.7)
[2024-10-02 20:20] LABS: Schistocytes None Seen
[2024-10-02 20:27] LABS: Creatine Kinase 82 U/L (55-170)
[2024-10-02 20:37] LABS: NT Pro B Type Natriuretic Pept 658 pg/mL (19.9-100)
[2024-10-02] MEDS: SODIUM CHLORIDE 0.9% IV 250 ML 30 ML IV CONT (20:44)
[2024-10-02] MEDS: TUBING, BLOOD SET 1 EACH XX (20:44)
[2024-10-02 20:48] LABS: Uric Acid 8.3 mg/dL (3.5-8.5)
[2024-10-02 20:50] LABS: INR 1.5; Prothrombin Time 18.6 Seconds (11.1-14.7)
[2024-10-02 20:51] LABS: Partial Thromboplastin Time 34.5 Seconds (22.3-36.8)
[2024-10-02 21:09] LABS: Lactate Dehydrogenase > 1000 U/L (120-246)
[2024-10-02 21:14] LABS: Fibrinogen 462 mg/dl (215-510)
--- NOTE | 2024-10-02 21:31 | PC.NURSE ---
Rupa from [facility] transfer center called for triage report, bed has been requested in the ICU of the bone marrow transplant unit and they will contact us when he gets a bed assigned
[2024-10-02] MEDS: allopurinoL 100 MG TABLET PO (22:26)
[2024-10-02] MEDS: CEFEPIME 2 GM/NS 50 ML 2 GM/50 ML BAG IVPB (22:26)
[2024-10-02] MEDS: HYDROXYUREA (*CHEMO) 500 MG CAPSULE 2000 MG PO (22:43)
[2024-10-02] MEDS: VANCOMYCIN 1,250 MG/NS 250 ML 1,250 MG/250 ML BAG 166.67 MG IVPB (22:43)
[2024-10-02 23:33] LABS: MRSA (PCR) NOT DETECTED (NOT DETECTE)
[2024-10-02] MEDS: ACETAMINOPHEN 500 MG TABLET 1000 MG PO (23:48)
--- NOTE | 2024-10-03 00:03 | PC.NURSE ---
Per Jud MELGOZA fly the patient
--- NOTE | 2024-10-03 00:05 | PC.NURSE ---
Per [facility] dispatch [id number] and crew are checking weather, awaiting a call back
[2024-10-03] MEDS: VANCOMYCIN 500 MG/NS 100 ML 500 MG/100 ML BAG 100 MG IVPB (00:17)
[2024-10-03] MEDS: SODIUM CHLORIDE 0.9% IV 1,000 ML 125 ML IV CONT (00:17)
[2024-10-03 00:18] VITALS: TEMP 37.7
--- NOTE | 2024-10-03 00:25 | PC.NURSE ---
[facility] arrives for patient
== END 2024-10-03 00:39 | disposition short-term general hospital (02) ==
PROVIDERS: Emergency Provider Physician Assistant; PCP Family Medicine
DX: D64.9 Anemia, unspecified (principal); D72.829 Elevated white blood cell count, unspecified; D69.6 Thrombocytopenia, unspecified; R22.0 Localized swelling, mass and lump, head; Z20.822 Contact with and (suspected) exposure to COVID-19; F84.0 Autistic disorder; E11.9 Type 2 diabetes mellitus without complications; E78.5 Hyperlipidemia, unspecified
CPT/HCPCS: 36415; 36430; 70450; 71046; 80053; 81001; 82010; 82550; 82948; 83605; 83615; 83735; 83880; 84100; 84550; 85025; 85055; 85380; 85384; 85610; 85730; 86140; 86850; 86900; 86901; 86923; 87040; 87637; 87641; 93005; 96361; 96365; 96366; 96367; 99285; A9270; J0692; J3370; J7030; J7050; P9016